=== PATIENT | male | born 1970 | race Caucasian/White ===

== ENCOUNTER 2018-02-13 22:07 | Inpatient (IN) | payer MEDICAID ==
[~2018-02-13] VITALS: Ht 172.7 cm; Wt 120.2 kg
[2018-02-13 22:25] VITALS: BP 150/97
--- NOTE | 2018-02-13 22:30 | NUR ---
PT AMBULATED TO BED 8. PT IS STABLE, AMBULATORY, A&OX4. HR IS TACHY AT 106.
--- NOTE | 2018-02-13 22:35 | NUR ---
pt presented er with c/o pain to the chest x 1 day. pt stated that within the last hour his fingers and hand became numb. pt is a/o x 4. nka. previous mecial hx is htn and dm. DENIES N/V; SKIN IS PINK/WARM/DRY; AAOX4 WITH EVEN AND STEADY GAIT; pt denies sob. LUNGS CLEAR BL; HR is sinus tachycardia; PATIENT STATES PAIN OF 6/10 AT THIS TIME; VSS; PATIENT POSITIONED FOR COMFORT; HOB ELEVATED; BEDRAILS UP X2; BED DOWN. ER MD MADE AWARE OF PT STATUS.
[2018-02-13] MEDS ORDERED: NACL 0.9% 1,000 ML IV ONE (22:45)
--- NOTE | 2018-02-13 22:55 | NUR ---
Dr. Heaton evaluating patient at bedside.
[2018-02-13] MEDS ORDERED: LORazepam 2 MG/ML VIAL IVP ONE (23:05)
[2018-02-13] MEDS ORDERED: NITROGLYCERIN 2% 1 GM PKT TP ONE (23:05)
[2018-02-13] MEDS ORDERED: ASPIRIN 81 MG TAB.CHEW PO ONE (23:05)
[2018-02-13] MEDS ORDERED: METOPROLOL 25 MG TAB PO ONE (23:05)
[2018-02-13] MEDS ORDERED: KETOROLAC 15 MG/ML VIAL IVP ONE (23:05)
[2018-02-13 23:33] LABS: BASOPHILS # (AUTO) 0.1 K/uL (0.00-0.22); BASOPHILS % (AUTO) 1.1 % (0.0-2.0); EOSINOPHILS # (AUTO) 0.1 K/uL (0-0.4); EOSINOPHILS % (AUTO) 2.3 % (0.0-4.0); HEMATOCRIT 42.8 % (36-52); HEMOGLOBIN 14.8 g/dL (12.0-18.0); LYMPHOCYTES # (AUTO) 1.3 K/uL (2.0-11.5); LYMPHOCYTES % (AUTO) 26.2 % (20.5-51.1); MEAN CORPUSCULAR HEMOGLOBIN 32 pg (27-31); MEAN CORPUSCULAR HGB CONC 35 g/dL (33-37); MEAN CORPUSCULAR VOLUME 92.3 fL (80-94); MONOCYTES # (AUTO) 0.4 K/uL (0.8-1.0); MONOCYTES % (AUTO) 7.4 % (1.7-9.3); NEUTROPHILS # (AUTO) 3.2 K/uL (1.8-7.7); PLATELET COUNT (AUTO) 161 K/uL (140-450); RED BLOOD CELL COUNT(AUTO) 4.64 MIL/uL (4.20-6.10); RED CELL DISTRIBUTION WIDTH 13.3 % (11.6-13.7)
--- NOTE | 2018-02-13 23:35 | NUR ---
PT SITTING UP IN BED, AT BEDSIDE. VITALS STABLE
[2018-02-13 23:45] LABS: ANION GAP 15.9 (8-16); CARBON DIOXIDE 26.2 mmol/L (21-32); CREATININE 0.8 mg/dL (0.7-1.3); POTASSIUM 4.1 mmol/L (3.5-5.1)
[2018-02-13 23:51] LABS: TOTAL BILIRUBIN 1.8 mg/dL (0.0-1.0)
[2018-02-13 23:55] LABS: PROTHROMBIN TIME 11.4 secs (10.8-13.4)
[2018-02-14] MEDS: NACL 0.9% 1,000 ML IV SCH (00:29)
[2018-02-14] MEDS ORDERED: ONDANSETRON 4 MG/2 ML VIAL IVP PRN (00:30)
[2018-02-14] MEDS ORDERED: ACETAMINOPHEN 325 MG TAB PO PRN (00:30)
--- NOTE | 2018-02-14 00:35 | NUR ---
pt resting in bed. vitals stable, at bedside. comfort measures offered. pt tolerated well.
[2018-02-14 01:36] LABS: APPEARANCE,URINE CLOUDY (CLEAR); BILIRUBIN,URINE 2+ (NEGATIVE); BLOOD, URINE NEGATIVE (NEGATIVE); COLOR,URINE ORANGE (YELLOW); LEUKOCYTE ESTERASE ,URINE NEGATIVE (NEGATIVE); NITRITE, URINE NEGATIVE (NEGATIVE); PH,URINE 5.5 (5.0-9.0); UGLUCOSE 2+ (NEGATIVE)
--- NOTE | 2018-02-14 01:45 | NUR ---
PT SITTING UP IN BED, VITALS STABLE, AT BEDSIDE. PT STATED PAIN IS DOWN TO A LEVEL 3/10. MD NOTIFIED.
[2018-02-14 01:48] LABS: RBC,URINE 0-5 (RARE) /HPF (0-5); WBC,URINE 0-5 (RARE) /HPF (0-5)
[2018-02-14 01:49] LABS: HYALINE CASTS, URINE 0-10 /LPF (None Seen); URINE AMORPHOUS URATE 2+ /HPF (None Seen)
[2018-02-14 01:50] LABS: FREE T4 (FREE THYROXINE) 1.38 ng/dL (0.76-1.46); MAGNESIUM 1.6 mg/dL (1.8-2.4); PHOSPHORUS 3.7 mg/dL (2.5-4.9); THYROID STIMULATING HORMONE 3.92 uIU/mL (0.34-3.74)
[2018-02-14 01:55] VITALS: BP 126/79
--- NOTE | 2018-02-14 01:55 | NUR ---
RECEIVED REPORT FROM ER NURSE AT BEDSIDE FOR CONTINUITY OF CARE. PT AAOX4. PT IV NOTED LAC 22G SALINE LOCK. PT AMBULATORY. PT HAS NITRO BID FROM ER PLACED 02/13 @ 2330 (GOOD FOR 12HRS). PT HAS NO SOB NO S/S OF DISTRESS ON RA. BED LOWERED CALL LIGHT WITHIN REACH WILL CONTINUE TO MONITOR.
--- NOTE | 2018-02-14 02:01 | NUR ---
Pt report given to BAKARI PATELDIRECTOR OF RESPIRATORY THERAPY. Transfer of care at this time. PT VITALS STABLE.
[2018-02-14 02:02] LABS: BARBITURATE, URINE NEG. ng/ml (NEG <=200); BENZODIAZEPINE, URINE NEG. ng/mL (NEG <=200); CANNABINOID, URINE POS. ng/mL (NEG <=50); COCAINE, URINE NEG. ng/mL (NEG <=300); OPIATE, URINE NEG. ng/mL (NEG <=2000); PHENCYCLIDINE SCREEN,URINE NEG. ng/mL (NEG <=25)
--- NOTE | 2018-02-14 02:05 | NUR ---
Patient will be admitted to care of DR. FIELDS. Admited to TELEMETRY. Will go to room 120A. Belongings list completed. Report to BAKARI PATEL.PT VITALS STABLE.
[2018-02-14] MEDS: ZOLPIDEM 5 MG TAB PO PRN ×2 (02:39→20:49)
--- NOTE | 2018-02-14 03:00 | NUR ---
PT SLEEPING NO SOB NO S/S OF DISTRESS ON RA. WILL CONTINUE TO MONITOR.
[2018-02-14 04:00] VITALS: BP 117/70
[2018-02-14] MEDS ORDERED: NITROGLYCERIN 0.4 MG TAB SL PRN (04:15)
[2018-02-14] MEDS ORDERED: DEXTROSE 50% 50 ML SYR IVP PRN (04:15)
[2018-02-14] MEDS ORDERED: MAG SULF 2000 MG/WATER PREMIX 50 ML IV SCH (05:00)
--- NOTE | 2018-02-14 05:00 | NUR ---
ADMIN MG FOR LOW MG LEVEL. WILL CONTINUE TO MONITOR.
[2018-02-14] MEDS: BLOOD GLUCOSE MONITORING 1 DEV DEV FS SCH ×4 (05:16→20:16)
[2018-02-14] MEDS: INSULIN LISPRO SLIDING SCALE 100 UNITS/ML VIAL SUBQ PRN ×4 (05:20→20:18)
--- NOTE | 2018-02-14 05:20 | NUR ---
BLOOD GLUCOSE 437 CRITICAL HIGH MD HOOKS VERBAL ORDER GIVE 12 UNITS REGULAR INSULIN. ALSO STATED THAT HE WILL ADD MORE MEDS TO DECREASE BLOOD GLUCOSE. WILL CONTINUE TO MONITOR.
[2018-02-14] MEDS: glipiZIDE 5 MG TAB PO SCH (06:24)
--- NOTE | 2018-02-14 07:25 | NUR ---
ENDORSED REPORT TO DAYSHIFT NURSE AT BEDSIDE FOR CONTINUITY OF CARE.
--- NOTE | 2018-02-14 07:32 | NUR ---
RECEIVED PT FROM COMPLAINT ADJUSTER NURSE, PT IS AWAKE AND LYING ON THE BED, WITH AN IV LINE IN PLACE ON THE LEFT AC G.22 NS AT 10ML/HR, INTACT. SIDE RAILS ARE UP AND CALL LIGHT WITHIN REACH. PLAN OF CARE WAS DISCUSSED AND PT VERBALIZED UNDERSTANDING. PT DENIES PAIN AT THIS TIME. NO SIGN OF DISTRESS NOTED AND WILL CONTINUE TO MONITOR.
[2018-02-14 07:53] LABS: ANION GAP 14.1 (8-16); CARBON DIOXIDE 25.5 mmol/L (21-32); CREATININE 0.8 mg/dL (0.7-1.3); POTASSIUM 3.6 mmol/L (3.5-5.1)
[2018-02-14 07:54] LABS: PHOSPHORUS 3.3 mg/dL (2.5-4.9)
[2018-02-14 08:00] VITALS: BP 140/80
[2018-02-14] MEDS: metFORMIN 500 MG TAB PO SCH ×2 (08:00→16:17)
[2018-02-14] MEDS: DOCUSATE SODIUM 100 MG GELCAP PO SCH ×2 (08:49→20:19)
[2018-02-14] MEDS: METOPROLOL 25 MG TAB PO SCH ×2 (08:50→20:17)
[2018-02-14] MEDS: ESCITALOPRAM 20 MG TAB PO SCH (08:51)
[2018-02-14] MEDS: LISINOPRIL 20 MG TAB PO SCH (08:51)
[2018-02-14] MEDS: ASPIRIN 81 MG TAB.CHEW PO SCH (08:51)
[2018-02-14] MEDS ORDERED: LISINOPRIL 5 MG TAB PO SCH (09:00)
[2018-02-14] MEDS ORDERED: METOPROLOL 25 MG TAB PO SCH (09:00)
[2018-02-14] MEDS: INSULIN LANTUS 100 UNITS/ML 10 ML VIAL SUBQ SCH (09:12)
--- NOTE | 2018-02-14 09:47 | NUR ---
PATIENT HAS BEEN SCREENED AND CATEGORIZED HIGH NUTRITION RISK. PATIENT WILL BE SEEN WITHIN 1-2 DAYS OF ADMISSION. 02/14/18 02/15/[address]
[2018-02-14 12:00] VITALS: BP 128/85
--- NOTE | 2018-02-14 15:48 | NUR ---
02/14/18 RD INITIAL ASSESSMENT COMPLETED PLEASE REFER TO NUTRITION ASSESSMENT UNDER CARE ACTIVITY FOR ESTIMATED NUTRITIONAL NEEDS. 1. CONTINUE CCHO 60 GM DIET TOLERATED 2. RECOMMEND GLUCERNA QD 3. PROVIDED NUTRITION EDUCATION ON DIABETES 4. RD TO FOLLOW-UP 3-5 DAYS, MODERATE RISK LLUVIA MCQUEEN RD
[2018-02-14 16:00] VITALS: BP 138/88
[2018-02-14] MEDS: HYDROcodone/APAP 7.5/325 MG 1 TAB PO PRN ×2 (16:27→20:49)
--- NOTE | 2018-02-14 19:20 | NUR ---
RECEIVED REPORT FROM DAY SHIFT NURSE AT PT BEDSIDE. PT IN STABLE CONDITION. FAMILY IS AT BEDSIDE. PT IS A/O X4 PT IS ON RA. SKIN IS INTACT. IV ACCESS IN L AC 22G. IV IS PATENT AND INTACT. PT NOT C/O CHEST PAIN BUT DOES COMPLAIN OF HEADACHE. BED IS LOCKED, LOW POSITION WITH SIDE RAILS UP X2. BOARD UPDATED. CALL LIGHT IS WITHIN REACH. WILL CONTINUE TO MONITOR PT.
--- NOTE | 2018-02-14 19:20 | NUR ---
ENDORSED PT TO HOTEL MAINTENANCE WORKER NURSE, SAMANTHA, FOR CONTINUITY OF CARE. PT IS STABLE AT THIS TIME WITH ON THE BEDSIDE
[2018-02-14 20:00] VITALS: BP 132/87
--- NOTE | 2018-02-14 20:18 | NUR ---
BS CHECKED, 180. INSULIN COVERAGE GIVEN PER MD ORDERS. PT TOLERATED WELL. WILL CONTINUE TO MONITOR.
--- NOTE | 2018-02-14 20:49 | NUR ---
PT C/O HEADACHE AND INABILITY TO SLEEP. LESLIEIEN AND MISTY GIVEN. WILL CONTINUE TO MONITOR PT.
[2018-02-14] MEDS ORDERED: ATORVASTATIN 20 MG TAB PO SCH (21:00)
[2018-02-14] MEDS ORDERED: KETOROLAC 30 MG/ML VIAL IM PRN (23:20)
--- NOTE | 2018-02-14 23:54 | NUR ---
PT C/O HEADACHE. TORADOL GIVEN. WILL CONTINUE TO MONITOR PT.
[2018-02-15] VITALS: BP 117/94
--- NOTE | 2018-02-15 00:02 | NUR ---
VS WITHIN NORMAL LIMITS. ALL PT NEEDS ARE MET AT THIS TIME. WILL CONTINUE TO MONITOR.
[2018-02-15] MEDS: NACL 0.9% 1,000 ML IV SCH (00:29)
--- NOTE | 2018-02-15 00:50 | NUR ---
PT ASLEEP IN BED. NO S/SX OF DISTRESS. WILL CONTINUE TO MONITOR PT.
--- NOTE | 2018-02-15 02:36 | NUR ---
NO CHANGE IN CONDITION. PT ASLEEP. NO S/SX OF DISTRESS. WILL CONTINUE TO MONITOR PT.
[2018-02-15 04:00] VITALS: BP 125/83
[2018-02-15] MEDS: BLOOD GLUCOSE MONITORING 1 DEV DEV FS SCH ×2 (05:35→11:30)
[2018-02-15] MEDS: glipiZIDE 5 MG TAB PO SCH (05:38)
[2018-02-15] MEDS: INSULIN LISPRO SLIDING SCALE 100 UNITS/ML VIAL SUBQ PRN ×2 (05:40→12:41)
--- NOTE | 2018-02-15 05:40 | NUR ---
BS CHECKED, 203. INSULIN COVERAGE GIVEN PER MD ORDERS. PT TOLERATED WELL. WILL CONTINUE TO MONITOR.
--- NOTE | 2018-02-15 07:10 | NUR ---
RECEIVED REPORT FROM NIGHTSHIFT NURSE AT BEDSIDE. PATIENT IS SLEEPING BUT AROUSABLE TO NAME. NO DISTRESS NOTED AT THIS TIME. NO PAIN NOTED. PATIENT HAS AN IV NOTED ON HIS LEFT AC 22G SL. PATIENT IS ALERT AND ORIENTED X4. CALL LIGHT WITHIN REACH OF PATIENT. INSTRUCTED PATIENT TO CALL IF HE NEEDS HELP WITH ANYTHING. UPDATED BOARD IN PATIENT'S ROOM. ALL PATIENT'S NEEDS MET AT THIS TIME. WILL CONTINUE TO MONITOR PATIENT.
--- NOTE | 2018-02-15 07:10 | NUR ---
ENDORSED PT TO DAY SHIFT NURSE FOR CONTINUITY OF CARE. PT IN STABLE CONDITION.
[2018-02-15 08:00] VITALS: BP 122/80
[2018-02-15 08:45] LABS: CHOL/HDL RATIO 7.3 (1-4.5)
[2018-02-15] MEDS: METOPROLOL 25 MG TAB PO SCH (09:40)
[2018-02-15] MEDS: LISINOPRIL 20 MG TAB PO SCH (09:41)
[2018-02-15] MEDS: DOCUSATE SODIUM 100 MG GELCAP PO SCH (09:42)
[2018-02-15] MEDS: ASPIRIN 81 MG TAB.CHEW PO SCH (09:43)
[2018-02-15] MEDS: ESCITALOPRAM 20 MG TAB PO SCH (09:44)
[2018-02-15] MEDS: HYDROcodone/APAP 7.5/325 MG 1 TAB PO PRN (09:45)
[2018-02-15] MEDS: metFORMIN 500 MG TAB PO SCH (09:47)
[2018-02-15] MEDS: INSULIN LANTUS 100 UNITS/ML 10 ML VIAL SUBQ SCH (09:48)
--- NOTE | 2018-02-15 09:48 | NUR ---
PATIENT TOOK ALL AM MEDICATIONS. PATIENT TOLERATED WELL. WILL CONTINUE TO MONITOR PATIENT.
[2018-02-15 12:00] VITALS: BP 111/66
--- NOTE | 2018-02-15 12:30 | NUR ---
PATIENT RESTING AT THIS TIME. NO DISTRESS NOTED.
[2018-02-15] MEDS ORDERED: METO25TA PO (14:34)
[2018-02-15] MEDS ORDERED: METF500T PO (14:34)
[2018-02-15] MEDS ORDERED: ZOLP5TAB1 PO (14:34)
[2018-02-15] MEDS ORDERED: LISI-420 PO (14:34)
[2018-02-15] MEDS ORDERED: GLIP5TAB13 PO (14:34)
--- NOTE | 2018-02-15 15:02 | NUR ---
PATIENT RESTING AT THIS TIME. NO DISTRESS NOTED. WILL CONTINUE TO MONITOR PATIENT.
--- NOTE | 2018-02-15 16:25 | NUR ---
PATIENT SIGNED DISCHARGE INSTRUCTIONS AND IS AWARE OF PRESCRIPTIONS. REMOVED IV FROM PATIENT WITH CATHETER STILL INTACT. REMOVED IDENTIFICATION BANDS FROM PATIENT. PATIENT GATHERED ALL BELONGINGS AND LEFT IN STABLE CONDITION.
== END 2018-02-15 16:25 | disposition home or self-care (01) | DRG 203 ==
LOC: MED 22:07 → MTU 02-14 00:38
PROVIDERS: ADMIT General Practice; ATTEND General Practice
DX: M94.0 Chondrocostal junction syndrome [Tietze] (principal); K76.89 Other specified diseases of liver; E11.319 Type 2 diabetes mellitus with unspecified diabetic retinopathy without macular edema; E11.65 Type 2 diabetes mellitus with hyperglycemia; E83.42 Hypomagnesemia; F41.9 Anxiety disorder, unspecified; E66.9 Obesity, unspecified; I10 Essential (primary) hypertension; E80.6 Other disorders of bilirubin metabolism; E03.9 Hypothyroidism, unspecified; G47.00 Insomnia, unspecified; I45.10 Unspecified right bundle-branch block; Z68.41 Body mass index [BMI] 40.0-44.9, adult; Z90.49 Acquired absence of other specified parts of digestive tract; Z83.3 Family history of diabetes mellitus; Z80.9 Family history of malignant neoplasm, unspecified; Z79.84 Long term (current) use of oral hypoglycemic drugs
CPT/HCPCS: 36415; 71045; 76705; 80048; 80053; 80305; 81001; 82150; 82948; 83036; 83690; 83735; 83880; 84100; 84439; 84443; 84484; 85025; 85610; 85730; 93005; 93925; 93970; 96361; 96374; 96375; 99285; J1815; J1885; J2060; J3475; Q0092

== ENCOUNTER 2019-01-06 01:52 | Emergency (ER) | payer SELFPAY ==
[~2019-01-06] VITALS: Ht 172.7 cm; Wt 99.8 kg
[~2019-01-06 01:52] MED LIST: GLIP5TAB13 PO; LISI-420 PO; METF500T PO; METO25TA PO; ZOLP5TAB1 PO
[2019-01-06 01:55] VITALS: BP 139/76
[2019-01-06] MEDS ORDERED: LIDOCAINE/PRILOCAINE 2.5% 5 GM TUBE TP ONE (03:00)
[2019-01-06] MEDS ORDERED: HYDROcodone/APAP 5/325 MG 1 TAB TAB PO ONE (03:00)
[2019-01-06 04:27] VITALS: BP 132/62
== END 2019-01-06 04:25 | disposition home or self-care (01) ==
LOC: MED 01:52
DX: K62.89 Other specified diseases of anus and rectum (principal); R17 Unspecified jaundice; I10 Essential (primary) hypertension; E11.9 Type 2 diabetes mellitus without complications; Z79.84 Long term (current) use of oral hypoglycemic drugs; Z79.899 Other long term (current) drug therapy
CPT/HCPCS: 99283

== ENCOUNTER 2019-05-12 12:11 | Inpatient (IN) | payer OTHER ==
[~2019-05-12] VITALS: Ht 172.7 cm; Wt 77.7 kg
--- NOTE | 2019-05-12 07:15 | NUR ---
ENDORSED TO NIGHTSHIFT NURSE AT BEDSIDE. PATIENT IS RESTING IN BED WITH THE TV OFF AND THE LIGHTS OFF. ABLE TO MAKE NEEDS KNOWN. NO COMPLAINTS OR CONCERNS AT THIS TIME. PATIENT PREFERRED TO WEAR OWN CLOTHES INSTEAD OF HOSPITAL GOWN. RESPIRATIONS EVEN AND UNLABORED WITH NO SOB OR RESPIRATORY DISTRESS. SAFETY MEASURES: HOB ELEVATED, BED IN LOWEST POSITION, CALL LIGHT WITHIN REACH, BED ALARM ACTIVATED. PATIENT IS STABLE
[2019-05-12 12:17] VITALS: BP 93/55
--- NOTE | 2019-05-12 12:20 | NUR ---
PT AMBULATED TO BED 5.
[2019-05-12] MEDS ORDERED: NACL 0.9% 1,000 ML IV SCH (12:31)
--- NOTE | 2019-05-12 12:49 | NUR ---
Dr. Heaton is evaluating the patient at bedside.
--- NOTE | 2019-05-12 12:50 | NUR ---
EKG AT BEDSIDE.
--- NOTE | 2019-05-12 12:50 | NUR ---
PT PRESENTS TO ED WITH C/O BODY WEAKNESS X 1 MONTH AND FEELING OF LIGHTHEADEDNESS. PT REPORTS N/V/D AND REPORTS EPISODE OF DIARRHEA EARLIER TODAY. PT STATES A DECREASE IN APPETITE AND STATES "FEDERICO LOST 30 LBS IN 1 WEEK". PT STATES THAT HE HAS BEEN DIAGNOSED WITH CIRRHOSIS. PT REPORTS LOWER BACK PAIN AND STATES THAT HE IS "SORE", PT RATES PAIN 5/10 AT THIS TIME. PT PRESENTS WITH A CLEAR SPEECH AND IS CONVERSING APPROPRIATELY. SKIN IS WARM, PINK, AND DRY. BP 89/46, ER MD GALAVIZ MADE AWARE. FAMILY MEMBER AT BEDSIDE. PT POSITIONED FOR COMFORT, HOB ELEVATED, BED RAIL UP X 1. ER MD AWARE OF PT STATUS. NKA HX: CIRRHOSIS, DM, HTN RX: LASIX, MILK THISTLE, FOLIC ACID, THIAMINE, AND ZOFRAN
--- NOTE | 2019-05-12 12:58 | NUR ---
PT STATES THAT HE IS UNABLE TO PROVIDE A URINE SAMPLE AT THIS TIME.
[2019-05-12 13:04] LABS: BASOPHILS % (AUTO) 0.1 % (0.0-2.0); EOSINOPHILS # (AUTO) 0.1 K/uL (0-0.4); EOSINOPHILS % (AUTO) 1.4 % (0.0-4.0); HEMOGLOBIN 9.6 g/dL (12.0-18.0); LYMPHOCYTES # (AUTO) 0.8 K/uL (2.0-11.5); LYMPHOCYTES % (AUTO) 15.8 % (20.5-51.1); MEAN CORPUSCULAR HEMOGLOBIN 37 pg (27-31); MEAN CORPUSCULAR HGB CONC 35 g/dL (33-37); MEAN CORPUSCULAR VOLUME 104.5 fL (80-94); MONOCYTES # (AUTO) 0.4 K/uL (0.8-1.0); MONOCYTES % (AUTO) 7.4 % (1.7-9.3); NEUTROPHILS # (AUTO) 3.8 K/uL (1.8-7.7); NEUTROPHILS % (AUTO) 75.3 % (42.2-75.2); PLATELET COUNT (AUTO) 170 K/uL (140-450); RED BLOOD CELL COUNT(AUTO) 2.59 MIL/uL (4.20-6.10); RED CELL DISTRIBUTION WIDTH 16.1 % (11.6-13.7)
[2019-05-12 13:27] LABS: ACETAMINOPHEN < 0.5 ug/ml (10-30); SALICYLATE < 2.8 mg/dL (2.8-20.0)
[2019-05-12 13:29] LABS: PROTHROMBIN TIME 17.8 secs (10.8-13.4)
[2019-05-12 13:32] LABS: ANION GAP 13.2 (8-16); CARBON DIOXIDE 31.4 mmol/L (21-32); CREATININE 0.8 mg/dL (0.7-1.3); POTASSIUM 4.6 mmol/L (3.5-5.1)
[2019-05-12 13:36] LABS: ALBUMIN 3.4 g/dL (3.4-5.0); TOTAL BILIRUBIN 11.7 mg/dL (0.0-1.0)
[2019-05-12 13:46] LABS: BARBITURATE, URINE NEG. ng/ml (NEG <=200); BENZODIAZEPINE, URINE NEG. ng/mL (NEG <=200); CANNABINOID, URINE POS. ng/mL (NEG <=50); COCAINE, URINE NEG. ng/mL (NEG <=300); OPIATE, URINE NEG. ng/mL (NEG <=2000); PHENCYCLIDINE SCREEN,URINE NEG. ng/mL (NEG <=25)
--- NOTE | 2019-05-12 13:46 | NUR ---
PT SLEEPING AT BEDSIDE, ABLE TO VISUALIZE RISE AND FALL OF CHEST. WILL CONTINUE TO MONITOR.
[2019-05-12] MEDS ORDERED: LACTULOSE 20 GM/30 ML UDC PO ONE (13:50)
[2019-05-12 13:58] LABS: APPEARANCE,URINE HAZY (CLEAR); BILIRUBIN,URINE 1+ (NEGATIVE); BLOOD, URINE NEGATIVE (NEGATIVE); COLOR,URINE YELLOW (YELLOW); LEUKOCYTE ESTERASE ,URINE NEGATIVE (NEGATIVE); NITRITE, URINE NEGATIVE (NEGATIVE); UGLUCOSE NEGATIVE (NEGATIVE)
[2019-05-12 14:09] LABS: RBC,URINE NONE SEEN /HPF (0-5); WBC,URINE 0-5 /HPF (0-5)
[2019-05-12 14:10] LABS: URINE AMORPHOUS URATE 1+ /HPF (None Seen)
[2019-05-12] MEDS ORDERED: FURO-572 PO (14:22)
[2019-05-12] MEDS ORDERED: ONDA4TAB PO (14:23)
[2019-05-12] MEDS ORDERED: VITB1I PO (14:24)
[2019-05-12] MEDS ORDERED: MILK140C2 PO (14:25)
[2019-05-12] MEDS ORDERED: VITA1TAB44 PO (14:25)
--- NOTE | 2019-05-12 14:35 | NUR ---
AT BEDSIDE WITH PT. PT RESTING, ABLE TO VISIT RISE AND FALL OF THE CHEST. WILL CONTINUE TO MONITOR.
--- NOTE | 2019-05-12 15:36 | NUR ---
Patient appears to be resting comfortably in bed. Respirations even and unlabored. at bedside. Will continue to monitor.
[2019-05-12] MEDS ORDERED: NACL 0.9% 1,000 ML IV STA (15:37)
--- NOTE | 2019-05-12 15:57 | NUR ---
Dr. Davis is evaluating the patient at bedside.
[2019-05-12] MEDS ORDERED: PROMETHAZINE 25 MG/ML VIAL IVP PRN (16:20)
[2019-05-12] MEDS ORDERED: LORazepam 1 MG TAB PO PRN (16:20)
[2019-05-12] MEDS ORDERED: ZOLPIDEM 5 MG TAB PO PRN (16:20)
[2019-05-12] MEDS ORDERED: LACTULOSE 20 GM/30 ML UDC PO PRN (16:20)
[2019-05-12] MEDS ORDERED: HYDROcodone/APAP 5/325 MG 1 TAB TAB PO PRN (16:25)
[2019-05-12] MEDS ORDERED: ACETAMINOPHEN 325 MG TAB PO PRN (16:25)
[2019-05-12 16:30] VITALS: BP 101/64
--- NOTE | 2019-05-12 16:30 | NUR ---
RECEIVED PATIENT FROM ED VIA GURNEY WITH FAMILY AT BEDSIDE. ASSISTED PATIENT TO BED WITH NO COMPLICATIONS. MRSA SWAB PERFORMED TO BOTH NARES. VITAL SIGNS WERE TAKEN. PATIENT IS STABLE. TAUGHT PATIENT ABOUT TV, CALL LIGHT, BED ALARM, AND VISITOR POLICY. PATIENT ORIENTED X4. PATIENT HAD NO SIGNS OF DISTRESS. RESPIRATIONS EVEN AND UNLABORED WITH NO SOB. SKIN WARM AND DRY TO TOUCH. IV IN LEFT AC 20G. IV SITE IS CLEAN, DRY, AND INTACT WITH NO DRAINAGE OR INFILTRATION. SAFETY MEASURES: HOB ELEVATED, BED IN LOWEST POSITION, CALL LIGHT WITHIN REACH, BED ALARM ACTIVATED, AND TELE MONITOR ATTACHED. WILL CONTINUE TO MONITOR.
--- NOTE | 2019-05-12 16:30 | NUR ---
Patient will be admitted to care of DR ROSADO. Admited to TELE. Will go to room 125B. Belongings list completed. Report to JORGE HUTTON.
--- NOTE | 2019-05-12 17:45 | NUR ---
PATIENT IN BED. FAMILY MEMBER ASSISTED PATIENT TO THE BATHROOM. NO COMPLICATIONS OR CONCERNS AT THIS MOMENT. RESPIRATIONS EVEN AND UNLABORED WITH NO SOB OR RESPIRATORY DISTRESS. SAFETY MEASURES: HOB ELEVATED, BED IN LOWEST POSITION, CALL LIGHT WITHIN REACH, BED ALARM ACTIVATED, AND TELE MONITOR ATTACHED. WILL CONTINUE TO MONITOR
--- NOTE | 2019-05-12 19:18 | NUR ---
RECEIVED BEDSIDE REPORT FROM DAY RN. PT IS AAOX4 ON RA. RESPIRATIONS ARE EQUAL AND UNLABORED. IV ON LAC 20G NS TKO. SKIN INTACT. PT WITH SKIN AND SCLERA JAUNDICE. PER RN PTS B/P BEEN RUNNING LOW AND RECEIVED 2L BOLUS IN ER. WILL MONITOR CLOSELY. POC DISCUSSED WITH PT. CALL LIGHT IS WITHIN REACH. PT REFUSED TO WEAR HOSPITAL GOWN. WILL ROUND FREQUENTLY.
[2019-05-12 20:00] VITALS: BP 100/46
--- NOTE | 2019-05-12 21:00 | NUR ---
VITAL SIGNS ARE WITHIN NORMAL LIMITS. 100/46 HR 59 DENIES ANY PAIN. POC DISCUSSED WITH PT. ALL QUESTIONS AND CONCERNS ANSWERED. CALL LIGHT IS WITHIN REACH. WILL CONTINUE TO MONITOR.
--- NOTE | 2019-05-12 22:00 | NUR ---
AND DAUGHTER ARE AT BEDSIDE. NO S/S OF DISTRESS. SAFETY MEASURES IN PLACE. WILL ROUND FREQUENTLY.
[2019-05-13] VITALS: BP 90/44
--- NOTE | 2019-05-13 | NUR ---
VITAL SIGNS STABLE 90/44 HR 58. DENIES ANY PAIN. PT SAT UP AND GAVE ICE CHIPS PER REQUEST. CALL LIGHT IS WITHIN REACH. WILL CONTINUE TO MONITOR.
--- NOTE | 2019-05-13 02:00 | NUR ---
PT IS SLEEPING COMFORTABLY IN BED. CHEST RISE AND FALL. CALL LIGHT IS WITHIN REACH.
[2019-05-13 04:00] VITALS: BP 98/50
--- NOTE | 2019-05-13 04:00 | NUR ---
VITAL SIGNS ARE WITHIN NORMAL LIMITS. ASSISTED PT TO BATHROOM. TOLERATED WELL. ALL NEEDS MET AT THIS TIME.
[2019-05-13 06:18] LABS: PROTHROMBIN TIME 18.3 secs (10.8-13.4)
--- NOTE | 2019-05-13 06:21 | NUR ---
ADMINISTERED PRN LACTULOSE FOR HIGH AMMONIA. PT TOLERATED WELL.
[2019-05-13 06:30] LABS: BASOPHILS % (AUTO) 0.2 % (0.0-2.0); EOSINOPHILS # (AUTO) 0.1 K/uL (0-0.4); EOSINOPHILS % (AUTO) 2.1 % (0.0-4.0); HEMATOCRIT 23.6 % (36-52); HEMOGLOBIN 8.5 g/dL (12.0-18.0); LYMPHOCYTES # (AUTO) 1.4 K/uL (2.0-11.5); LYMPHOCYTES % (AUTO) 27.3 % (20.5-51.1); MEAN CORPUSCULAR HEMOGLOBIN 38 pg (27-31); MEAN CORPUSCULAR HGB CONC 36 g/dL (33-37); MEAN CORPUSCULAR VOLUME 104.8 fL (80-94); MONOCYTES # (AUTO) 0.4 K/uL (0.8-1.0); MONOCYTES % (AUTO) 6.8 % (1.7-9.3); NEUTROPHILS # (AUTO) 3.3 K/uL (1.8-7.7); NEUTROPHILS % (AUTO) 63.6 % (42.2-75.2); PLATELET COUNT (AUTO) 142 K/uL (140-450); RED BLOOD CELL COUNT(AUTO) 2.26 MIL/uL (4.20-6.10); RED CELL DISTRIBUTION WIDTH 16.1 % (11.6-13.7); WHITE BLOOD COUNT (AUTO) 5.2 K/uL (4.8-10.8)
--- NOTE | 2019-05-13 07:31 | NUR ---
GAVE BEDSIDE REPORT TO DAY SHIFT RN. PT ENDORSED IN STABLE CONDITION.
[2019-05-13 07:35] LABS: MAGNESIUM 1.8 mg/dL (1.8-2.4)
--- NOTE | 2019-05-13 07:36 | NUR ---
RECEIVED BEDSIDE REPORT FROM NIGHTSHIFT NURSE. PATIENT LAYING IN BED ASLEEP UPON ARRIVAL. RESPONSIVE TO VERBAL AND TACTILE STIMULI. ABLE TO MAKE NEEDS KNOWN. NO COMPLAINTS OR CONCERNS AT THIS TIME. SKIN WARM AND DRY TO TOUCH. IV RIGHT AC 20G. SITE INTACT, CLEAN, AND DRY RUNNING NS AT 120ML/HR. RESPIRATIONS EVEN AND UNLABORED WITH NO SOB OR RESPIRATORY DISTRESS. SAFETY MEASURES: HOB ELEVATED, NON SKID SOCKS ON, BED IN LOWEST POSITION, CALL LIGHT WITHIN REACH, BED ALARM ACTIVATED, AND TELE MONITORS ATTACHED. WILL CONTINUE TO MONITOR
[2019-05-13 08:00] VITALS: BP 92/52
--- NOTE | 2019-05-13 08:20 | NUR ---
PATIENT HAS BEEN SCREENED AND CATEGORIZED HIGH NUTRITION RISK. PATIENT WILL BE SEEN WITHIN 1-2 DAYS OF ADMISSION. 05/13/19-05/14/[address]
--- NOTE | 2019-05-13 09:10 | NUR ---
ADMINISTERED MEDICATIONS PRESCRIBED PER MD. MEDICATION EDUCATION PERFORMED. PATIENT ABLE TO VERBALIZE UNDERSTANDING AND TEACH BACK. ABLE TO MAKE NEEDS KNOWN. NO COMPLAINTS OR CONCERNS AT THIS TIME. RESPIRATIONS EVEN AND UNLABORED. SAFETY MEASURES: HOB ELEVATED, NON SKID SOCKS ON, BED IN LOWEST POSITION, CALL LIGHT WITHIN REACH, BED ALARM ACTIVATED, AND TELE MONITORS ATTACHED. WILL CONTINUE TO MONITOR
[2019-05-13 09:55] LABS: ANION GAP 13.3 (8-16); CARBON DIOXIDE 29.7 mmol/L (21-32)
[2019-05-13 09:56] LABS: ALBUMIN 2.8 g/dL (3.4-5.0); CREATININE 0.7 mg/dL (0.7-1.3); TOTAL BILIRUBIN 10.6 mg/dL (0.0-1.0)
--- NOTE | 2019-05-13 10:15 | NUR ---
PATIENT WAS LYING IN BED UPON ARRIVAL. PHYSICAL THERAPY CAME TO VISIT PATIENT. PT TOLERATED FAIRLY. NO CONCERNS AT THIS TIME. NO COMPLAINTS OF PAIN. RESPIRATIONS EVEN AND UNLABORED WITH NO SOB OR RESPIRATORY DISTRESS. SAFETY MEASURES: HOB ELEVATED, NON SKID SOCKS ON, BED IN LOWEST POSITION, CALL LIGHT WITHIN REACH, BED ALARM ACTIVATED, AND TELE MONITORS ATTACHED. WILL CONTINUE TO MONITOR WILL CONTINUE TO MONITOR Addendum: 05/13/19 at 1052 by Yanira Crabtree RN DISREGARD PHYSICAL THERAPY COMING TO VISIT PATIENT. PHYSICAL THERAPY DID NOT VISIT PATIENT IN 125B
--- NOTE | 2019-05-13 10:50 | NUR ---
DC PLANNIN48 YEAR OLD MALE FROM HOME, ADMITTED DUE TO GENERALIZED WEAKNESS AND NEAR SYNCOPAL EPISODES. PAST MEDICAL HISTORY INCLUDE ALCOHOLIC LIVER CIRRHOSIS. INITIAL DIAGNOSIS OF HEPATIC ENCEPHALOPATHY. ON LACTULOSE PO. NO CONSULTS AT THIS TIME. ON ROOM AIR. CXR NORMAL. CM WILL FOLLOW UP.
[2019-05-13 12:00] VITALS: BP 90/45
--- NOTE | 2019-05-13 13:01 | NUR ---
OFFERED PT PRN LACTULOSE. PT WANTS TO WAIT TILL HIS STOMACH SETTLES, DUE TO EATING YOGURT AND GRANOLA.
--- NOTE | 2019-05-13 13:35 | NUR ---
05/13/19 RD INITIAL ASSESSMENT COMPLETED PLEASE REFER TO NUTRITION ASSESSMENT UNDER CARE ACTIVITY FOR ESTIMATED NUTRITIONAL NEEDS. 1. RECOMMEND HEPATIC, VEGETARIAN DIET TOLERATED 2. RECOMMEND ENUSRE TID 3. NUTRITION EDUCATION ON CIRRHOSIS AND INCREASING PO INTAKE WAS GIVEN 4. RD TO FOLLOW-UP 2-3 DAYS, HIGH RISK LLUVIA MCQUEEN, ZACHARY
--- NOTE | 2019-05-13 14:55 | NUR ---
PATIENT IS AWARE AND PREPARED FOR DISCHARGE. RESPIRATIONS EVEN AND UNLABORED. NO SOB OR RESPIRATORY DISTRESS. SKIN WARM AND DRY AND INTACT. EDUCATED PATIENT ON DISCHARGE INSTRUCTIONS AND MEDICATION REGIMEN. PATIENT IS ABLE TO VERBALIZE UNDERSTANDING AND TEACH BACK. DAUGHTER IS WITH PATIENT AT BEDSIDE. PATIENT HAD ID BANDS AND INTACT IV CANNULA REMOVED LUMEN INTACT. TELE MONITOR WAS REMOVED FROM PATIENT. NO COMPLICATIONS NOTED. PATIENT WAS WHEELED OUT BY THE NURSE TO THE FRONT LOBBY WHERE THE DAUGHTER HAD THE CAR READY TO PICK HIM UP. PATIENT IS STABLE.
--- NOTE | 2019-05-13 15:20 | NUR ---
CONTACTED PATIENT'S PCP [facility] DR. JOSE ROBERTO PELLETIER'S OFFICE AT [phone], ABLE TO SPEAK TO STEPHANE REGARDING POST DC APPOINTMENT. SHE PROVIDED ME WITH MAY 21, 2019 AT 1330PM. [place] [id number] [address] [place] [address]. WILL PROVIDE A COPY TO THE PATIENT. Addendum: 05/14/19 at 1033 by Dewayne Alvarez SS CLAUDE contacted patient to inform patient of PCP appointment. CLAUDE left voicemail to [phone]. CLAUDE will follow up as needed.
== END 2019-05-13 14:55 | disposition home or self-care (01) | DRG 279 ==
LOC: MED 12:11 → MMU 15:37
PROVIDERS: ADMIT Internal Medicine Pulmonary Disease; ATTEND Internal Medicine Pulmonary Disease
DX: K72.90 Hepatic failure, unspecified without coma (principal); D68.4 Acquired coagulation factor deficiency; K70.30 Alcoholic cirrhosis of liver without ascites; D64.9 Anemia, unspecified; E80.6 Other disorders of bilirubin metabolism; Z79.899 Other long term (current) drug therapy
CPT/HCPCS: 36415; 71045; 80053; 80305; 81001; 82140; 82150; 83605; 83690; 83735; 83880; 84484; 85025; 85610; 85730; 87040; 87081; 87086; 93005; 96360; 96361; 99285; G0480; G0482; Q0092

== ENCOUNTER 2019-06-16 17:48 | Inpatient (IN) | payer OTHER ==
[~2019-06-16] VITALS: Ht 172.7 cm; Wt 76.7 kg
--- NOTE | 2019-06-16 11:37 | NUR ---
RECEIVED PT FROM JESSE OSHEA VIA [facility]. PT ON DOPAMINE DRIP AT 5MCG. BILAT PUPPILS 4MM, PERRL, BRISK RETURN. NOTED YELLOW COLOR ON SCLERA OF BILAT EYES. PT HAS PERIPHERAL IV RIGHT AC 20 GAUGE, AND LEFT AC 22 GAUGE, INTACT, PATENT, GOOD BLOOD RETURN. SINUS RHYTHM ON MONITOR. LUNG SOUNDS CLEAR. RESPIRATIONS EVEN AND UNLABORED. ABDOMEN IS SOFT AND ROUND. BOWEL SOUNDS ACTIVE. SKIN IS INTACT, WARM AND DRY. CAP REFILL LESS THAN 2 SECONDS. GENERALIZED WEAKNESS. PT C/O OF CONTINUOS ABDOMINAL PAIN IN THE LIVER AREA AND CONTINUOS LOWER BACK PAIN. PT ABLE TO USE URINAL, DARK OBIE COLOR. HOB 30 DEGREES. BED LOCKED IN LOWEST POSITION. WILL CONTINUE TO MONITOR.
[2019-06-16 11:45] VITALS: BP 126/66
[~2019-06-16 17:48] MED LIST changes: +FURO-572 PO; -GLIP5TAB13 PO; -LISI-420 PO; -METF500T PO; -METO25TA PO; +ONDA4TAB PO; +VITA1TAB44 PO; +VITB1I PO; -ZOLP5TAB1 PO
--- NOTE | 2019-06-16 17:48 | NUR ---
PT LOCO BLS TO ER BED 08
[2019-06-16 18:02] VITALS: BP 93/36
[2019-06-16] MEDS ORDERED: ONDANSETRON 4 MG/2 ML VIAL IVP ONE ×2 (18:10→23:00)
[2019-06-16] MEDS ORDERED: FAMOTIDINE 20 MG/2 ML VIAL IVP ONE (18:10)
[2019-06-16] MEDS ORDERED: ALBUMIN HUMAN 5 % 250 ML IV ONE (18:10)
--- NOTE | 2019-06-16 18:10 | NUR ---
49/M with liver cirrhosis c/o generalized weakness x 2 hours CLAIMS CLERK. Per EMS, patient was hypotensive in route SPB 90s. Pt appears weak. Eyes jaundiced. Bedrails up x1, at bedside, on bedside monitor. Will continue to monitor. HX- cirrhosis, hypotension
--- NOTE | 2019-06-16 18:12 | NUR ---
DR CUETO EVALUATING PT AT BEDSIDE
--- NOTE | 2019-06-16 18:13 | NUR ---
BP 93/36, MAP 53; DR CUETO AT BEDSIDE AND AWARE.
[2019-06-16] MEDS ORDERED: LACTULOSE 20 GM/30 ML UDC PO ONE (18:25)
--- NOTE | 2019-06-16 18:30 | NUR ---
PT W/C ASISSTED TO BATHROOM. ABLE TO STAND UP AND TRANSFER FROM [facility] TO W/C.
--- NOTE | 2019-06-16 19:04 | NUR ---
report to Janelle Ying, transfer of care at this time.
--- NOTE | 2019-06-16 19:05 | NUR ---
RECIVED REPORT FROM KIERSTEN PATEL.
--- NOTE | 2019-06-16 19:07 | NUR ---
PT RESTING IN BED LAYING DOWN. FAMILY AT BEDSIDE. PT AX0X4. RESPIRATIONS ARE EVEN AND UNLABORED. O2SAT % 100% ON RA. PT DENIES C/O PAIN 0/10 AT THIS TIME. SKIN IS WARM AND DRY TO TOUCH. JAUNDICE NOTED IN SKIN AND SCLERA. ABLUMIN IV RUNNING CONTINOUSLY. IV IN L AC 22G. IV SITE IS PATENT, NO REDNESS OR SWELLING NOTED AT SITE. PT BED IN LOWEST POSITION AND LOCKED IN PLACE. WILL CONTIUE TO MONITOR.
--- NOTE | 2019-06-16 19:10 | NUR ---
LAB AT BEDSIDE.
--- NOTE | 2019-06-16 19:15 | NUR ---
XRAY AT BEDSIDE.
[2019-06-16 19:36] LABS: BASOPHILS % (AUTO) 0.2 % (0.0-2.0); EOSINOPHILS # (AUTO) 0.1 K/uL (0-0.4); EOSINOPHILS % (AUTO) 1.2 % (0.0-4.0); HEMATOCRIT 23.9 % (36-52); HEMOGLOBIN 8.3 g/dL (12.0-18.0); LYMPHOCYTES # (AUTO) 0.9 K/uL (2.0-11.5); LYMPHOCYTES % (AUTO) 16.2 % (20.5-51.1); MEAN CORPUSCULAR HEMOGLOBIN 38 pg (27-31); MEAN CORPUSCULAR HGB CONC 35 g/dL (33-37); MEAN CORPUSCULAR VOLUME 110.9 fL (80-94); MONOCYTES # (AUTO) 0.7 K/uL (0.8-1.0); MONOCYTES % (AUTO) 11.8 % (1.7-9.3); NEUTROPHILS # (AUTO) 3.9 K/uL (1.8-7.7); NEUTROPHILS % (AUTO) 70.6 % (42.2-75.2); PLATELET COUNT (AUTO) 114 K/uL (140-450); RED BLOOD CELL COUNT(AUTO) 2.16 MIL/uL (4.20-6.10); RED CELL DISTRIBUTION WIDTH 16.1 % (11.6-13.7); WHITE BLOOD COUNT (AUTO) 5.5 K/uL (4.8-10.8)
--- NOTE | 2019-06-16 19:36 | NUR ---
PT TAKEN TO CT IN W/C, IV ALBUMIN STILL RUNNING.
--- NOTE | 2019-06-16 19:56 | NUR ---
PT RETURN FROM RAD
[2019-06-16 20:00] LABS: PROTHROMBIN TIME 18.2 secs (10.8-13.4)
[2019-06-16 20:06] LABS: ACETONE, SERUM NEGATIVE (NEGATIVE)
[2019-06-16 20:13] LABS: ANION GAP 9.7 (8-16); CARBON DIOXIDE 31.6 mmol/L (21-32); CREATININE 0.7 mg/dL (0.7-1.3); POTASSIUM 5.3 mmol/L (3.5-5.1)
--- NOTE | 2019-06-16 20:13 | NUR ---
Dr. Heaton examining patient.
[2019-06-16 20:20] LABS: ALBUMIN 2.8 g/dL (3.4-5.0); TOTAL BILIRUBIN 9.4 mg/dL (0.0-1.0)
[2019-06-16 20:28] LABS: BARBITURATE, URINE NEG. ng/ml (NEG <=200); BENZODIAZEPINE, URINE NEG. ng/mL (NEG <=200); CANNABINOID, URINE POS. ng/mL (NEG <=50); COCAINE, URINE NEG. ng/mL (NEG <=300); OPIATE, URINE NEG. ng/mL (NEG <=2000); PHENCYCLIDINE SCREEN,URINE NEG. ng/mL (NEG <=25)
[2019-06-16 20:33] LABS: APPEARANCE,URINE CLEAR (CLEAR); BILIRUBIN,URINE 2+ (NEGATIVE); BLOOD, URINE NEGATIVE (NEGATIVE); COLOR,URINE ORANGE (YELLOW); LEUKOCYTE ESTERASE ,URINE NEGATIVE (NEGATIVE); NITRITE, URINE NEGATIVE (NEGATIVE); UGLUCOSE NEGATIVE (NEGATIVE)
[2019-06-16] MEDS ORDERED: DOPamine 400 MG/D5W PREMIX 250 ML IV ONE (20:35)
--- NOTE | 2019-06-16 20:55 | NUR ---
PT RESTING IN BED B/P 85/36. NOTIFIED AND ORDERED DOPAMINE 400ML/D5W PREMIX 250ML. NEW IV LINE PLACED ON RAC 20G, AND IS PATENT. TIRATION DRIP STARTED AT 5ML/HR. VS: BP-85/36, HR-62, OSAT-100%, RR-19. PT HAD X 1 EPIDOSE OF N/V. VOMIT IS CLEAR IN COLOR. PT DENIES WANTING ANY N/V MEDICATION.
[2019-06-16] MEDS ORDERED: MORPHINE SULFATE 2 MG/ML SYR IVP ONE (21:10)
--- NOTE | 2019-06-16 21:10 | NUR ---
VS: BP-128/61, HR-67, OSAT-100%, RR-19. PT RESTING IN BED EYES CLOSED, RESPIRATIONS ARE EVEN AND UNABORED. SKIN IS WARM AND DRY TO TOUCH. DOPMANIE IV RUNNING AT 5ML/HR. IV SITE IS PATENT, NO REDNESS OR SWELLING NOTED. WILL CONTINUE TO MOINTOR.
--- NOTE | 2019-06-16 21:25 | NUR ---
VS: BP-128/54, HR-64, OSAT-98%, RR-15. PT RESTING IN BED EYES CLOSED, RESPIRATIONS ARE EVEN AND UNABORED. SKIN IS WARM AND DRY TO TOUCH. DOPMANIE IV RUNNING AT 5ML/HR. IV SITE IS PATENT, NO REDNESS OR SWELLING NOTED. WILL CONTINUE TO MOINTOR.
--- NOTE | 2019-06-16 21:40 | NUR ---
VS: BP-116/48, HR-66, OSAT-98%, RR-18. PT RESTING IN BED EYES OPEN, RESPIRATIONS ARE EVEN AND UNABORED. SKIN IS WARM AND DRY TO TOUCH. PT HAS C/O 10/[address] GALAVIZ NOTIFIED AND ORDERED MORPHINE 1 MG IVP. MEDICATION GIVEN. DOPMANIE IV RUNNING AT 5ML/HR. IV SITE IS PATENT, NO REDNESS OR SWELLING NOTED. WILL CONTINUE TO [facility].
--- NOTE | 2019-06-16 21:55 | NUR ---
VS: BP-118/49, HR-67, OSAT-97%, RR-14. PT RESTING IN BED EYES OPEN, RESPIRATIONS ARE EVEN AND UNABORED. SKIN IS WARM AND DRY TO TOUCH. PT STATES HEAD PAIN HAS DECREASED FROM 10/10 TO 5/10. DOPMANIE IV RUNNING AT 5ML/HR. IV SITE IS PATENT, NO REDNESS OR SWELLING NOTED. WILL CONTINUE TO MOINTOR.
--- NOTE | 2019-06-16 22:10 | NUR ---
VS: BP-108/45, HR-70, OSAT-96%, RR-14. PT RESTING IN BED EYES CLOSED, RESPIRATIONS ARE EVEN AND UNABORED. SKIN IS WARM AND DRY TO TOUCH. DOPMANIE IV RUNNING AT 5ML/HR. IV SITE IS PATENT, NO REDNESS OR SWELLING NOTED. WILL CONTINUE TO MOINTOR.
--- NOTE | 2019-06-16 22:25 | NUR ---
VS: BP-121/52, HR-70, OSAT-96%, RR-17. PT RESTING IN BED EYES CLOSED, RESPIRATIONS ARE EVEN AND UNABORED. SKIN IS WARM AND DRY TO TOUCH. DOPMANIE IV RUNNING AT 5ML/HR. IV SITE IS PATENT, NO REDNESS OR SWELLING NOTED. WILL CONTINUE TO MOINTOR.
[2019-06-16 22:34] LABS: AMYLASE 200 U/L (25-115); GAMMA GLUTAMYL TRANSFERASE 17 U/L (7-51); LIPASE 399 U/L (73-393); MAGNESIUM 1.8 mg/dL (1.8-2.4)
--- NOTE | 2019-06-16 22:40 | NUR ---
VS: BP-106/46, HR-69, OSAT-96%, RR-14. PT RESTING IN BED EYES CLOSED, RESPIRATIONS ARE EVEN AND UNABORED. SKIN IS WARM AND DRY TO TOUCH. DOPMANIE IV RUNNING AT 5ML/HR. IV SITE IS PATENT, NO REDNESS OR SWELLING NOTED. WILL CONTINUE TO MOINTOR.
--- NOTE | 2019-06-16 22:42 | NUR ---
POTASSIUM LEVEL 5.3. NOTIFIED. NO NEW ORDERS GIVEN.
--- NOTE | 2019-06-16 22:55 | NUR ---
VS: BP-109/58, HR-64, OSAT-99%, RR-19. PT RESTING IN BED EYES OPEN LOOKING AT PHONE. RESPIRATIONS ARE EVEN AND UNABORED. SKIN IS WARM AND DRY TO TOUCH. PT HAD C/O NAUSEA. DR GALAVIZ NOTIFIED. AND NEW ORDER OF ZOFRAN 4MG IVP GIVEN. PT URINATED IN URINAL 300ML PF PINK URINE. DOPMANIE IV RUNNING AT 5ML/HR. IV SITE IS PATENT, NO REDNESS OR SWELLING NOTED. WILL CONTINUE TO [facility].
--- NOTE | 2019-06-16 23:45 | NUR ---
Patient will be admitted to care of . Admited to ICU. Will go to room 2. Belongings list completed. Report to CODY PATEL.
[2019-06-16] MEDS ORDERED: LACT10SO1 PO (23:47)
[2019-06-16] MEDS ORDERED: ZINC220C12 PO (23:47)
[2019-06-16] MEDS ORDERED: SPIR50TA PO (23:47)
[2019-06-16] MEDS ORDERED: [UNRECOGNIZED DRUG - CODE] PO (23:47)
[2019-06-17] VITALS (17 sets, daily range): BP systolic 92–126; BP diastolic 39–66
[2019-06-17] MEDS ORDERED: MORPHINE SULFATE 2 MG/ML SYR IVP PRN (00:35)
[2019-06-17] MEDS ORDERED: ONDANSETRON 4 MG/2 ML VIAL IVP PRN (00:35)
[2019-06-17] MEDS ORDERED: DOPamine 400 MG/D5W PREMIX 250 ML IV PRN (00:35)
[2019-06-17] MEDS ORDERED: ACETAMINOPHEN 325 MG TAB PO PRN (00:35)
--- NOTE | 2019-06-17 01:30 | NUR ---
DOPAMINE DRIP HELD AT THIS TIME. WILL CONTINUE TO MONITOR.
[2019-06-17] MEDS ORDERED: MORPHINE SULFATE 2 MG/ML SYR ONE (01:36)
--- NOTE | 2019-06-17 01:40 | NUR ---
PT C/O OF 12/26 CONTINUOUS PRESSURE PAIN IN LOWER BACK AREA. 1MG OF MORPHINE GIVEN.
[2019-06-17] MEDS: NACL 0.9% 1,000 ML IV SCH ×3 (01:49→20:35)
--- NOTE | 2019-06-17 03:20 | NUR ---
PT AWAKE, LYING IN BED, USING CELLPHONE. VITAL SIGNS STABLE. NO DISTRESS NOTED. DENIES PAIN. HOB 30 DEGREES. BED LOCKED IN LOWEST POSITION. WILL CONTINUE TO MONITOR.
--- NOTE | 2019-06-17 05:26 | NUR ---
PT HAS EYES CLOSED, RESTING IN BED. PT IS SELF REPOSITIONING. VITAL SIGNS STABLE. NO SOB OR DISTRESS NOTED. WILL CONTINUE TO MONITOR.
--- NOTE | 2019-06-17 06:20 | NUR ---
PT HAS EYES CLOSED, RESTING IN BED. VITAL SIGNS STABLE. NO SOB OR DISTRESS NOTED. HOB 30 DEGREES. BED LOCKED IN LOWEST POSITION. WILL CONTINUE TO MONITOR.
[2019-06-17 07:05] LABS: BASOPHILS % (AUTO) 0.3 % (0.0-2.0); EOSINOPHILS # (AUTO) 0.1 K/uL (0-0.4); EOSINOPHILS % (AUTO) 2.1 % (0.0-4.0); HEMATOCRIT 24.1 % (36-52); HEMOGLOBIN 8.3 g/dL (12.0-18.0); LYMPHOCYTES # (AUTO) 1.1 K/uL (2.0-11.5); LYMPHOCYTES % (AUTO) 24.9 % (20.5-51.1); MEAN CORPUSCULAR HEMOGLOBIN 39 pg (27-31); MEAN CORPUSCULAR HGB CONC 35 g/dL (33-37); MEAN CORPUSCULAR VOLUME 111.7 fL (80-94); MONOCYTES # (AUTO) 0.4 K/uL (0.8-1.0); MONOCYTES % (AUTO) 8.9 % (1.7-9.3); NEUTROPHILS # (AUTO) 2.7 K/uL (1.8-7.7); NEUTROPHILS % (AUTO) 63.8 % (42.2-75.2); PLATELET COUNT (AUTO) 104 K/uL (140-450); RED BLOOD CELL COUNT(AUTO) 2.16 MIL/uL (4.20-6.10); RED CELL DISTRIBUTION WIDTH 16.1 % (11.6-13.7); WHITE BLOOD COUNT (AUTO) 4.2 K/uL (4.8-10.8)
--- NOTE | 2019-06-17 07:25 | NUR ---
REPORT GIVEN TO DEIDRE PATEL FOR CONTINUITY OF CARE.
--- NOTE | 2019-06-17 07:26 | NUR ---
RECEIVED REPORT FROM FRONT OFFICE SPEC RN. PT AWAKE. A/O X4. MAKES NEEDS KNOWN. IN ROOM AIR 99%. NO SOB OR RESPIRATORY DISTRESS NOTED. BP 94/51. SKIN DRY AND WARM TO TOUCH. YELLOW SCLERA NOTED ON BOTH EYES. LUNGS SOUND CLEAR. PERIPHERAL LINES NOTED ON LAC AND RAC. INTACT LINES. FLUSHED. NS INFUSING AT 100 ML/HR. ABDOMEN SOFT, ROUND AND TENDER. PT REPORTS MILD PAIN. DOES NOT WANT PAIN MEDS AT THIS TIME. ALSO REPORTS NAUSEA. WILL GIVE ZOFRAN PER ORDER. SKIN INTACT. MILD EDEMA NOTED ON RIGHT LOWER LEG. HOB ELEVATED. BED IN LOW POSITION LOCKED. WILL CONTINUE TO MONITOR.
[2019-06-17 07:29] LABS: ALBUMIN 2.8 g/dL (3.4-5.0); ANION GAP 11.6 (8-16); CARBON DIOXIDE 30.1 mmol/L (21-32); CREATININE 0.8 mg/dL (0.7-1.3); POTASSIUM 4.7 mmol/L (3.5-5.1); TOTAL BILIRUBIN 10.9 mg/dL (0.0-1.0)
[2019-06-17 07:32] LABS: PROTHROMBIN TIME 17.8 secs (10.8-13.4)
--- NOTE | 2019-06-17 08:15 | NUR ---
PT REFUSED BREAKFAST AT THIS TIME.
--- NOTE | 2019-06-17 08:46 | NUR ---
PATIENT HAS BEEN SCREENED AND CATEGORIZED HIGH NUTRITION RISK. PATIENT WILL BE SEEN WITHIN 1-2 DAYS OF ADMISSION. 06/17/19-06/18/[address]
[2019-06-17] MEDS ORDERED: ZOLPIDEM 5 MG TAB PO PRN (10:50)
[2019-06-17] MEDS ORDERED: MIDODRINE 5 MG TAB PO PRN (10:50)
--- NOTE | 2019-06-17 11:00 | NUR ---
PT EVALUATED BY DR. HARRELL. UPDATED PT STATUS AND MADE AWARE OF PT CONCERN REGARDING LASIX, LAB RESULTS: ALBUMIN 2.8, ALT 47 AND HB 8.3. RECEIVED NEW ORDER. WILL CARRYOUT ORDER. PT CAN BE TRANSFERRED TO TELE UNIT PER DR. HARRELL.
--- NOTE | 2019-06-17 11:35 | NUR ---
PT TRANSFERRED TO TELE UNIT ROOM 105A ON STABLE CONDITION. REPORT GIVEN TO JORGE WATSON. BELONGINGS TAKEN WITH PT. PT AND JORGE BRYAN.
--- NOTE | 2019-06-17 11:41 | NUR ---
DISCHARGE PLANNIN49 Y/O MALE PATIENT FROM HOME, WHO CAME IN DUE TO SYNCOPE. PAST MEDICAL HISTORY INCLUDE CIRRHOSIS AND DIABETES. INITIAL DIAGNOSIS OF CIRRHOSIS AND HYPOTENSION. CURRENT LABS INCLUDE WBC 4.2, H/H 8.3/24.1, NA/K 138/4.7, BUN/CREA 23/0.8, AMYLASE/LIPASE 200/399. NORMAL CXR ON ADMISSION. CT ABD/PELVIS SHOWED HEPATOSPLENOMEGALY AND HEPATIC CIRRHOSIS, CHOLELITHIASIS. U/S ABD SHOED CHOLELITHIASIS WITH POSSIBLE CHOLECYSTITIS. ON ZOSYN. NO CONSULTS AT THIS TIME. DC PLAN PENDING ON PATIENT'S RESPONSE TO TREATMENT.
--- NOTE | 2019-06-17 12:00 | NUR ---
RECEIVED REPORT FROM ICU NURSE DEIDRE. [facility], NKA. PATIENT IS AAOX4, AMBULATORY. USES URINAL AT BEDSIDE D/T CC GENERALIZED WEAKNESS. PATIENT HAS A L. AC 22G AND R. AC 20G. PATIENT IS ON ROOM AIR, CCHO DIET. CURRENTLY AWAKE, NO RESP DISTRESS NOTED. ADMITTING STRIP TO TELE, SINUS RHYTHM WITH PACS. WILL REVIEW PLAN OF CARE FOR THE DAY.
[2019-06-17] MEDS: PIPERACILLIN/TAZOBACTAM 3.375 GM in DEXTROSE 5% 50 ML IV SCH ×3 (12:43→23:04)
--- NOTE | 2019-06-17 12:55 | NUR ---
BEGAN ZOSYN IVPB INFUSION. PATIENT IS SITTING UP IN BED EATING LUNCH
[2019-06-17] MEDS: ALBUMIN HUMAN 25% 100 ML IV SCH ×2 (13:00→22:54)
--- NOTE | 2019-06-17 13:53 | NUR ---
PATIENT IS IN BED GETTING AN ECHO. PATIENT STABLE
--- NOTE | 2019-06-17 14:13 | NUR ---
ALBUMIN INFUSING AT 50ML/HR
--- NOTE | 2019-06-17 15:12 | NUR ---
06/17/19 RD INITIAL ASSESSMENT COMPLETED PLEASE REFER TO NUTRITION ASSESSMENT UNDER CARE ACTIVITY FOR ESTIMATED NUTRITIONAL NEEDS. 1. CONTINUE CARDIAC, CCHO 60 GM DIET TOLERATED 2. FOLLOW PATIENTS FOOD PREFERENCES/REQUESTS 3. IF PO INTAKE <50% RECOMMEND ENSURE BID 4. RD TO FOLLOW-UP 2-3 DAYS, HIGH RISK LLUVIA MCQUEEN RD
--- NOTE | 2019-06-17 18:20 | NUR ---
PATIENT STILL HAS ALBUMIN INFUSING. NO COMPLAINTS AT THIS TIME.
--- NOTE | 2019-06-17 18:36 | NUR ---
BEGAN ZOSYN INFUSION ON RIGHT AC. PATIENT IS AWAKE AND ALERT IN BED. ALL NEEDS HAVE BEEN MET. WILL ENDORSE TO AUTOS DISASSEMBLER FOR CONTINUITY OF CARE
--- NOTE | 2019-06-17 19:20 | NUR ---
RECEIVED BEDSIDE REPORT FROM DAY SHIFT NURSE. PATIENT IS AWAKE, ALERT, AND COOPERATIVE RESPIRATION EVEN UNLABORED ON ROOM AIR. NO DISTRESS NOTED. SKIN IS WARM AND DRY. IV PATENT AND INTACT. PLAN OF CARE WAS DISCUSSED. ALL SAFETY MEASURES IN PLACE. BED IS AT LOW POSITION. CALL LIGHT WITHIN REACH AND VERBALIZES ITS USE WILL CONTINUE TO MONITOR.
--- NOTE | 2019-06-17 19:25 | NUR ---
PATIENT IV ALBUMIN STILL RUNNING. CALLED PHARMACY REGARDING THE SECOND DOSE OF ALBUMIN. PHARMACY RECOMMENDED TO GIVE THE SECOND DOSE AT 2300 INSTEAD OF 2100.
--- NOTE | 2019-06-17 20:16 | NUR ---
INITIAL ASSESSMENT DONE. VITALS WERE TAKEN. PATIENT IN STABLE CONDITION. FAMILY MEMBER AT BEDSIDE. WILL CONTINUE TO MONITOR.
--- NOTE | 2019-06-17 22:30 | NUR ---
PATIENT WATCHING TV RESPIRATION EVEN UNLABORED ON ROOM AIR. NO DISTRESS NOTED. WILL CONTINUE TO MONITOR.
--- NOTE | 2019-06-17 23:00 | NUR ---
ALBUMIN IV BAG GIVEN. VITALS WERE TAKEN. PATIENT COMPLAINED OF 8/10 PAIN. ALSO WANT SOME SLEEPING AID. PRN PAIN MED AND SLEEPING AID GIVEN PER ORDER. WILL CONTINUE TO MONITOR.
[2019-06-18] VITALS: BP 113/68
--- NOTE | 2019-06-18 01:06 | NUR ---
CHECKED PATIENT. PATIENT TALKING ON THE PHONE. RESPIRATION EVEN UNLABORED ON ROOM AIR. NO DISTRESS NOTED. WILL CONTINUE TO MONITOR
--- NOTE | 2019-06-18 02:58 | NUR ---
CHECKED PATIENT. PATIENT SLEEPING RESPIRATION EVEN UNLABORED ON ROOM AIR. NO DISTRESS NOTED. WILL CONTINUE TO MONITOR.
[2019-06-18 04:00] VITALS: BP 111/69
--- NOTE | 2019-06-18 04:12 | NUR ---
VITALS WERE TAKEN. PATIENT IN STABLE CONDITION. NO DISTRESS NOTED. WILL CONTINUE TO MONITOR.
[2019-06-18] MEDS: ALBUMIN HUMAN 25% 100 ML IV SCH (04:51)
[2019-06-18] MEDS: PIPERACILLIN/TAZOBACTAM 3.375 GM in DEXTROSE 5% 50 ML IV SCH (05:32)
[2019-06-18] MEDS: NACL 0.9% 1,000 ML IV SCH (06:35)
--- NOTE | 2019-06-18 07:00 | NUR ---
RECEIVED PT FROM INSPECTOR HEATING AND REFRIGERATION, MERLYN. PT IS AWAKE AND ORIENTED. WITH IV ON L AC 22G INFUSING AT 100ML/HR. FAMILY AT BEDSIDE. PT IS ON CARDIAC DIET, FULL CODE, SKIN INTACT. PT HAS NKA.
--- NOTE | 2019-06-18 07:14 | NUR ---
ENDORSED PATIENT TO DAY SHIFT NURSE. PATIENT IN STABLE CONDITION
[2019-06-18 07:15] LABS: BASOPHILS % (AUTO) 0.1 % (0.0-2.0); EOSINOPHILS # (AUTO) 0.1 K/uL (0-0.4); EOSINOPHILS % (AUTO) 1.9 % (0.0-4.0); HEMATOCRIT 21.1 % (36-52); HEMOGLOBIN 7.3 g/dL (12.0-18.0); LYMPHOCYTES % (AUTO) 24.6 % (20.5-51.1); MEAN CORPUSCULAR HEMOGLOBIN 39 pg (27-31); MEAN CORPUSCULAR HGB CONC 35 g/dL (33-37); MEAN CORPUSCULAR VOLUME 111.1 fL (80-94); MONOCYTES # (AUTO) 0.4 K/uL (0.8-1.0); MONOCYTES % (AUTO) 9.2 % (1.7-9.3); NEUTROPHILS # (AUTO) 2.6 K/uL (1.8-7.7); NEUTROPHILS % (AUTO) 64.2 % (42.2-75.2); PLATELET COUNT (AUTO) 94 K/uL (140-450); RED CELL DISTRIBUTION WIDTH 16.1 % (11.6-13.7)
[2019-06-18 07:21] LABS: ALBUMIN 3.1 g/dL (3.4-5.0); ANION GAP 15.2 (8-16); CARBON DIOXIDE 28.5 mmol/L (21-32); CREATININE 0.9 mg/dL (0.7-1.3); POTASSIUM 4.7 mmol/L (3.5-5.1); TOTAL BILIRUBIN 12.4 mg/dL (0.0-1.0)
[2019-06-18 08:00] VITALS: BP 124/79
[2019-06-18 12:00] VITALS: BP 107/53
[2019-06-18] MEDS ORDERED: INFLUENZA VACCINE QUAD 0.5 ML SYR IMVAC SCH (13:15)
[2019-06-18] MEDS ORDERED: PNEUMOCOCCAL VACCINE 23 MCG/0.5 ML VIAL IMVAC SCH (13:15)
--- NOTE | 2019-06-18 13:58 | NUR ---
PT IS FOR D/C. DC INSTRUCTIONS GIVEN TO PT IN PREFERRED LANGUAGE [facility]. INSTRUCTIONS ON FF-UP PCP APPOINTMENT, DIET REGIMEN, ANSWERED ALL PT'S QUESTIONS REGARDING THE D/C. PT VERBALIZED UNDERSTANDING. D/C PAPERS WITH INSTRUCTIONS GIVEN TO THE PT.
== END 2019-06-18 14:13 | disposition home or self-care (01) | DRG 207 ==
LOC: MED 17:48 → MIC 22:19 → UNDOADMIN 22:19 → MTU 06-17 11:35
PROVIDERS: ADMIT Internal Medicine Pulmonary Disease; ATTEND Internal Medicine Pulmonary Disease
DX: I95.9 Hypotension, unspecified (principal); E44.0 Moderate protein-calorie malnutrition; K74.60 Unspecified cirrhosis of liver; E86.0 Dehydration; I83.90 Asymptomatic varicose veins of unspecified lower extremity; I10 Essential (primary) hypertension; E11.9 Type 2 diabetes mellitus without complications; Z90.49 Acquired absence of other specified parts of digestive tract; F10.10 Alcohol abuse, uncomplicated; Y90.9 Presence of alcohol in blood, level not specified; Z68.25 Body mass index [BMI] 25.0-25.9, adult
CPT/HCPCS: 36415; 71045; 76700; 80053; 80305; 81003; 82009; 82140; 82150; 82977; 83690; 83735; 83880; 84484; 85025; 85610; 85730; 87081; 87804; 90732; 93005; 96365; 96366; 96375; 99285; G0482; J1265; J2270; J2405; J2543; J3490; J7030; J7060; P9041; P9046; Q0092

== ENCOUNTER 2019-07-03 13:26 | Inpatient (IN) | payer OTHER ==
[~2019-07-03] VITALS: Ht 172.7 cm; Wt 75.3 kg
[~2019-07-03 13:26] MED LIST changes: +LACT10SO1 PO; +SPIR50TA PO; +ZINC220C12 PO; +[UNRECOGNIZED DRUG - CODE] PO
[2019-07-03 13:36] VITALS: BP 105/58
--- NOTE | 2019-07-03 13:48 | NUR ---
WAIT AT LOBBY.
--- NOTE | 2019-07-03 13:54 | NUR ---
PT AMB WITH CANE TO BED 12.
[2019-07-03] MEDS ORDERED: NACL 0.9% 1,000 ML IV SCH (14:14)
--- NOTE | 2019-07-03 14:20 | NUR ---
49/M C/O NAUSEA, GENERALIZED ABDOMINAL PAIN X 3 DAYS. PAIN STARTED FROM THE LT LOWER BACK. NOW PAIN IS GENERALIZED ABD, WORSE AT LEFT ABD AND RADIATING DOWN TO THE LEFT TESTICLE. DENIES TESTICULAR SWELLING. STATES MILD DYSURIA. PT HAS BEEN FEELING WEAK. MED HX:CIRRHOSIS WITH ASCITES, HEMORRHOIDS
[2019-07-03 14:40] LABS: APPEARANCE,URINE CLEAR (CLEAR); BILIRUBIN,URINE 1+ (NEGATIVE); BLOOD, URINE NEGATIVE (NEGATIVE); COLOR,URINE YELLOW (YELLOW); LEUKOCYTE ESTERASE ,URINE TRACE (NEGATIVE); NITRITE, URINE NEGATIVE (NEGATIVE); PH,URINE 5.5 (5.0-9.0); UGLUCOSE NEGATIVE (NEGATIVE)
[2019-07-03 14:47] LABS: BASOPHILS % (AUTO) 0.1 % (0.0-2.0); EOSINOPHILS # (AUTO) 0.1 K/uL (0-0.4); EOSINOPHILS % (AUTO) 1.6 % (0.0-4.0); HEMATOCRIT 25.9 % (36-52); LYMPHOCYTES # (AUTO) 1.7 K/uL (2.0-11.5); LYMPHOCYTES % (AUTO) 21.9 % (20.5-51.1); MEAN CORPUSCULAR HEMOGLOBIN 39 pg (27-31); MEAN CORPUSCULAR HGB CONC 35 g/dL (33-37); MEAN CORPUSCULAR VOLUME 110.8 fL (80-94); MONOCYTES # (AUTO) 0.7 K/uL (0.8-1.0); MONOCYTES % (AUTO) 9.5 % (1.7-9.3); NEUTROPHILS # (AUTO) 5.2 K/uL (1.8-7.7); NEUTROPHILS % (AUTO) 66.9 % (42.2-75.2); PLATELET COUNT (AUTO) 135 K/uL (140-450); RED BLOOD CELL COUNT(AUTO) 2.34 MIL/uL (4.20-6.10); RED CELL DISTRIBUTION WIDTH 16.1 % (11.6-13.7); WHITE BLOOD COUNT (AUTO) 7.8 K/uL (4.8-10.8)
[2019-07-03 15:17] LABS: ALBUMIN 3.3 g/dL (3.4-5.0); ANION GAP 12.4 (8-16); CARBON DIOXIDE 30.7 mmol/L (21-32); CREATININE 0.9 mg/dL (0.7-1.3); POTASSIUM 5.1 mmol/L (3.5-5.1); TOTAL BILIRUBIN 11.4 mg/dL (0.0-1.0)
--- NOTE | 2019-07-03 18:58 | NUR ---
NOTIFIED DR SHERWOOD THAT PT IS C/O INTOLERABLE PAIN AND REQUESTING PAIN MED.
--- NOTE | 2019-07-03 19:06 | NUR ---
REPORT TO LILIAN PATEL, TRANSFER OF CARE AT THIS TIME.
--- NOTE | 2019-07-03 19:08 | NUR ---
REPORT RECEIVED FROM JORGE BURCH. ASSUMED CARE AT THIS TIME.
[2019-07-03] MEDS ORDERED: MORPHINE SULFATE 4 MG/ML SYR IVP PRN (19:20)
[2019-07-03] MEDS ORDERED: ONDANSETRON 4 MG/2 ML VIAL IVP PRN (19:20)
[2019-07-03] MEDS ORDERED: ALBUTEROL 0.083% 2.5 MG/3 ML NEBU INH PRN (19:20)
[2019-07-03] MEDS ORDERED: ACETAMINOPHEN 325 MG TAB PO PRN (19:20)
--- NOTE | 2019-07-03 19:30 | NUR ---
PT SEATED UPRIGHT. BEDRAIL X2 UP. WILL CONTINUE TO MONITOR.
--- NOTE | 2019-07-03 20:00 | NUR ---
Dr. Hu examining patient.
[2019-07-03] MEDS ORDERED: SODIUM PHOSPHATE 118 ML ENEM RC SCH (20:10)
[2019-07-03] MEDS ORDERED: LACTULOSE 20 GM/30 ML UDC PO SCH (20:15)
--- NOTE | 2019-07-03 20:40 | NUR ---
RECEIVED FROM ER PER WHEELCHAIR AWAKE AND ALERT. ABLE TO VERBALIZE NEEDS WELL IN CROATIAN. ORIENTED X 4. CLEAR SPEECH. NO SOB. PT. CARE PLANS FOR THE NIGHT DISCUSSED WITH HIM AND CALL LIGHT USE EXPLAINED. SKIN INTACT. CTAB. DX. OF BOWEL OBSTRUCTION AND FECAL IMPACTION. AFEBRILE.
--- NOTE | 2019-07-03 20:50 | NUR ---
Patient will be admitted to care of DR. SARGENT. Admited to [facility]. Will go to room 126A Belongings list completed. Report to JORGE DIAZ. TRANSFER OF CARE A THIS TIME
[2019-07-03] MEDS: DOCUSATE SODIUM 100 MG GELCAP PO SCH (21:00)
[2019-07-03] MEDS ORDERED: SENNA 8.6 MG TAB PO SCH (21:00)
[2019-07-03 21:41] VITALS: BP 93/44
[2019-07-03] MEDS ORDERED: cefTRIAXone 1,000 MG VIAL ONE (22:00)
[2019-07-03] MEDS: DEXT 5% /NACL 0.9% 1,000 ML IV SCH (22:10)
[2019-07-03] MEDS: HYDROcodone/APAP 5/325 MG 1 TAB TAB PO PRN (22:13)
--- NOTE | 2019-07-03 23:12 | NUR ---
IN HERE VISITING. NO COMPLAINTS DONE. REQUESTED TO STAY FOR A WHILE TO ASSIST SPOUSE IN GOING RESTROOM RT WITH LAXATIVES. CALL LIGHT WITH IN REACH.
[2019-07-04] VITALS: BP 96/50
[2019-07-04] MEDS: LACTULOSE 20 GM/30 ML UDC PO SCH ×4 (00:53→17:11)
--- NOTE | 2019-07-04 02:13 | NUR ---
PT. ABLE TO GO RESTROOM TO HAVE BOWEL MOVEMENTS. CALL LIGHT WITH IN REACH. SLEEPS IN AND OUT RT LAXATIVE EFFECTS.
--- NOTE | 2019-07-04 04:30 | NUR ---
SLEEPING. NO COMPLAINTS DONE. CALL LIGHT WITH IN REACH.
[2019-07-04 05:04] VITALS: BP 91/44
[2019-07-04] MEDS: DEXT 5% /NACL 0.9% 1,000 ML IV SCH ×2 (05:20→15:47)
[2019-07-04 07:04] LABS: PROTHROMBIN TIME 17.7 secs (10.8-13.4)
[2019-07-04 07:30] LABS: BASOPHILS % (AUTO) 0.2 % (0.0-2.0); EOSINOPHILS # (AUTO) 0.1 K/uL (0-0.4); EOSINOPHILS % (AUTO) 2.1 % (0.0-4.0); HEMATOCRIT 22.1 % (36-52); HEMOGLOBIN 7.9 g/dL (12.0-18.0); LYMPHOCYTES # (AUTO) 1.4 K/uL (2.0-11.5); LYMPHOCYTES % (AUTO) 26.9 % (20.5-51.1); MEAN CORPUSCULAR HEMOGLOBIN 39 pg (27-31); MEAN CORPUSCULAR HGB CONC 36 g/dL (33-37); MEAN CORPUSCULAR VOLUME 110.5 fL (80-94); MONOCYTES # (AUTO) 0.5 K/uL (0.8-1.0); NEUTROPHILS # (AUTO) 3.2 K/uL (1.8-7.7); NEUTROPHILS % (AUTO) 61.8 % (42.2-75.2); PLATELET COUNT (AUTO) 104 K/uL (140-450); RED CELL DISTRIBUTION WIDTH 15.9 % (11.6-13.7); WHITE BLOOD COUNT (AUTO) 5.1 K/uL (4.8-10.8)
--- NOTE | 2019-07-04 07:30 | NUR ---
RECEIVED BEDSIDE REPORT FROM PM RN PT AWAKE IN BED ALL SAFETY MEASURES ARE IN PLACE. WILL CONTINUE TO MONITOR. IVF INFUSING. IV SITE PATENT AND SHOWS NO SIGNS OF INFILTRATION OR INFLAMMATION
--- NOTE | 2019-07-04 07:30 | NUR ---
ENDORSED TO AM RN AWAKE AND ALERT. NO SOB. DENIES PAIN. ABLE TO VERBALIZE NEEDS WELL.
[2019-07-04 08:00] VITALS: BP 99/53
[2019-07-04 08:18] LABS: MAGNESIUM 1.8 mg/dL (1.8-2.4); PHOSPHORUS 5.5 mg/dL (2.5-4.9)
[2019-07-04 08:24] LABS: ANION GAP 11.1 (8-16); CARBON DIOXIDE 29.6 mmol/L (21-32); CREATININE 0.8 mg/dL (0.7-1.3); POTASSIUM 4.7 mmol/L (3.5-5.1)
[2019-07-04] MEDS: DOCUSATE SODIUM 100 MG GELCAP PO SCH (08:41)
[2019-07-04] MEDS ORDERED: THIAMINE 100 MG TAB PO SCH (09:00)
[2019-07-04] MEDS ORDERED: CYANOCOBALAMIN 250 MCG PO SCH (09:00)
[2019-07-04] MEDS ORDERED: VIT-B COMP/VIT-C/FOLIC ACID 1 TAB PO SCH (09:00)
[2019-07-04] MEDS ORDERED: CYANOCOBALAMIN 100 MCG TAB PO SCH (09:00)
[2019-07-04] MEDS ORDERED: ZINC SULF 220 MG CAP PO SCH (09:00)
--- NOTE | 2019-07-04 09:05 | NUR ---
PATIENT HAS BEEN SCREENED AND CATEGORIZED MODERATE NUTRITION RISK. PATIENT WILL BE SEEN WITHIN 3-5 DAYS OF ADMISSION. 07/06/19 07/08/[address]
--- NOTE | 2019-07-04 09:15 | NUR ---
FREQUENT ROUNDING ON PT PT APPEARS STABLE AND IN NO APPARENT DISTRESS. ALL SAFETY MEASURES ARE IN PLACE WILL CONTINUE TO MONITOR.
--- NOTE | 2019-07-04 11:34 | NUR ---
FREQUENT ROUNDING ON PT PT APPEARS STABLE AND IN NO APPARENT DISTRESS. ALL SAFETY MEASURES ARE IN PLACE WILL CONTINUE TO MONITOR.
--- NOTE | 2019-07-04 15:02 | NUR ---
FREQUENT ROUNDING ON PT PT AWAKE IN BED PT APPEARS STABLE AND IN NO APPARENT DISTRESS. PT AMBULATING THROUGHOUT THE UNIT WITH HIS DAUGHTER. ALL SAFETY MEASURES ARE IN PLACE WILL CONTINUE TO MONITOR.
[2019-07-04] MEDS: HYDROcodone/APAP 5/325 MG 1 TAB TAB PO PRN (16:00)
--- NOTE | 2019-07-04 17:16 | NUR ---
FREQUENT ROUNDING ON PT PT AWAKE IN BED PT APPEARS STABLE AND IN NO APPARENT DISTRESS. ALL SAFETY MEASURES ARE IN PLACE WILL CONTINUE TO MONITOR. PT FAMILY MEMBER AT BEDSIDE.
--- NOTE | 2019-07-04 19:16 | NUR ---
ENDORSED PT TO PM RN PT AWAKE IN BED PT APPEARS STABLE AND IN NO APPARENT DISTRESS. ALL SAFETY MEASURES ARE IN PLACE
--- NOTE | 2019-07-04 19:17 | NUR ---
RECEIVED BEDSIDE REPORT FROM AM SHIFT JORGE ARMENTA. PT AWAKE IN BED, ALERT ORIENTED, AMBULATORY W/ CANE. IVF INFUSING. W/ IV SITE L AC G 20 WITH IVF RUNNING D51/2 NS AT 100 ML/HR. PATENT AND SHOWS NO SIGNS OF INFILTRATION OR INFLAMMATION, ALL SAFETY MEASURES ARE IN PLACE. WILL CONTINUE TO MONITOR.
--- NOTE | 2019-07-04 19:24 | NUR ---
RECEIVED ORDER FROM CLEMENTINA MANZO AND DR. CHOWDHURY, PRIMARY MD THAT PT CAN BE DISCHARGED. DOCUMENTATION STARTED ON DISCHARGE.
[2019-07-04] MEDS ORDERED: MIRABULK PO ×4 (19:55→20:21)
[2019-07-04 20:00] VITALS: BP 100/56
--- NOTE | 2019-07-04 20:00 | NUR ---
GOT LAST VITALS, WNL,PT IN STABLE CONDITION
[2019-07-04 20:31] VITALS: BP_SYST 100
--- NOTE | 2019-07-04 21:00 | NUR ---
GAVE THE DISCHARGE PAPERS WITH PATIENT AND TALIA SIGNED FOR PT WAS SLEEPING. GAVE THE DISCHARGE INSTRUCTIONS. IMMUNIZATION UPTO DATE.
--- NOTE | 2019-07-04 21:35 | NUR ---
PT WHEELED TO EXIT VIA WHEELCHAIR AND WALKED W/ CANE TO THE CAR. NO SOB, NO RESPIRATORY DISTRESS. NO COMPLAINTS OF PAIN. PT IN STABLE CONDITION
== END 2019-07-04 21:35 | disposition home or self-care (01) | DRG 247 ==
LOC: MED 13:26 → MMU 19:17 → MTU 20:40
PROVIDERS: ADMIT Internal Medicine; ATTEND Internal Medicine
DX: K56.609 Unspecified intestinal obstruction, unspecified as to partial versus complete obstruction (principal); D68.9 Coagulation defect, unspecified; K70.30 Alcoholic cirrhosis of liver without ascites; D64.9 Anemia, unspecified; E11.9 Type 2 diabetes mellitus without complications; D75.89 Other specified diseases of blood and blood-forming organs; F10.20 Alcohol dependence, uncomplicated; K56.41 Fecal impaction; K56.7 Ileus, unspecified; N39.0 Urinary tract infection, site not specified; I10 Essential (primary) hypertension; Z90.49 Acquired absence of other specified parts of digestive tract
CPT/HCPCS: 36415; 74018; 80048; 80053; 81001; 82140; 82150; 83690; 83735; 84100; 85025; 85610; 85730; 87081; 87086; 94640; 99285; J0696; J7042; J7060; Q9967

== ENCOUNTER 2019-08-15 17:09 | Inpatient (IN) | payer OTHER ==
[~2019-08-15] VITALS: Ht 172.7 cm; Wt 83.9 kg
[~2019-08-15 17:09] MED LIST changes: -FURO-572 PO; -LACT10SO1 PO; +MIRABULK PO; -ONDA4TAB PO; -SPIR50TA PO; -ZINC220C12 PO; +ZINC220C28 PO
[2019-08-15 17:18] VITALS: BP 105/67
--- NOTE | 2019-08-15 17:31 | NUR ---
LOW BACK PAIN SECONDARY TO FALL BACKWARDS ONTO GRASS WHILE FLYING KITE. BUTTOCKS HIT GRASS FIRST AND THEN HIT HEAD. PAIN WORST AT LOW BACK. UNABLE TO STAND OR MOVE AFTER FALL. NO PAIN RADIATION DOWN TO LEGS. +SENSATION AND MOVEMENT TO BL LEGS. NO URINARY OR BOWEL INCONTINENCE. 7/10 TOLERABLE WHEN LYING COMPLETELY STILL AND SUPINE +SCLERAL ICTERUS PMHX---LIVER CIRROSIS, HYPOTENSION NKA BUT UNABLE TO TAKE HIGH DOSE PAIN MEDICATIONS DUE TO LIVER.
[2019-08-15] MEDS ORDERED: NACL 0.9% 1,000 ML IV ONE ×2 (18:15→23:35)
[2019-08-15] MEDS ORDERED: MORPHINE SULFATE 4 MG/ML SYR IVP ONE (18:15)
[2019-08-15] MEDS ORDERED: KETOROLAC 30 MG/ML VIAL IVP ONE (18:15)
--- NOTE | 2019-08-15 18:35 | NUR ---
CAR BRACER AT BEDSIDE FOR BLOOD DRAW
--- NOTE | 2019-08-15 18:39 | NUR ---
DOMESTIC HELPER AT BEDSIDE--TO TAKE PT TO CT SCAN
[2019-08-15 18:48] LABS: BASOPHILS % (AUTO) 0.2 % (0.0-2.0); EOSINOPHILS # (AUTO) 0.1 K/uL (0-0.4); EOSINOPHILS % (AUTO) 1.7 % (0.0-4.0); LYMPHOCYTES # (AUTO) 0.8 K/uL (2.0-11.5); LYMPHOCYTES % (AUTO) 13.8 % (20.5-51.1); MEAN CORPUSCULAR HEMOGLOBIN 39 pg (27-31); MEAN CORPUSCULAR HGB CONC 36 g/dL (33-37); MEAN CORPUSCULAR VOLUME 106.9 fL (80-94); MONOCYTES # (AUTO) 0.7 K/uL (0.8-1.0); NEUTROPHILS # (AUTO) 4.1 K/uL (1.8-7.7); NEUTROPHILS % (AUTO) 72.3 % (42.2-75.2); PLATELET COUNT (AUTO) 84 K/uL (140-450); RED BLOOD CELL COUNT(AUTO) 1.79 MIL/uL (4.20-6.10); RED CELL DISTRIBUTION WIDTH 16.3 % (11.6-13.7); WHITE BLOOD COUNT (AUTO) 5.6 K/uL (4.8-10.8)
[2019-08-15 19:05] LABS: HEMATOCRIT 19.1 % (36-52)
--- NOTE | 2019-08-15 19:08 | NUR ---
REPORT TO JESSE PATEL, TRANSFER OF CARE AT THIS TIME.
--- NOTE | 2019-08-15 19:10 | NUR ---
RECIVED REPORT FROM KIERSTEN PATEL. CONTINUATION OF CARE.
--- NOTE | 2019-08-15 19:20 | NUR ---
PT AAO X4. RESPIRATIONS ARE EVEN AND UNLABORED. PT DENIES N/V/D. PT GIVEN MORPHINE 4 MG IVP AND TORADOL 30MG IVP @ 1830. PT STATES LOW BACK PAIN HAS DECREASED FROM 03/28 TO 11/26. PT CMS INTACT TO LE BILAT. CAP REFILL <3, PEDAL PULSES STRONG AND EQUAL BILAT. PT CONTINENT OF BOWEL AND BLADDER. URINAL AT BEDSIDE. PT CURRENTLY SUPINE, "I FEEL COMFORTABLE IN THIS POSTION." PT IV SITE IS AT L AC 20G. NS 0.9% 1000ML RUNNING AT 100 ML/HR. IV SITE IS PATENT. NO REDNESS, SWELLING NOTED. PT DENIES PAIN AT IV SITE. DAUGHTER AT BEDSIDE. PT ON MONITOR. BED LOCKED AND IN LOWEST POSITION.
[2019-08-15 19:51] LABS: ALBUMIN 2.1 g/dL (3.4-5.0); ANION GAP 5.5 (8-16); CARBON DIOXIDE 34.6 mmol/L (21-32); CREATININE 1.4 mg/dL (0.6-1.3); POTASSIUM 5.1 mmol/L (3.5-5.1); TOTAL BILIRUBIN 10.4 mg/dL (0.0-1.0)
[2019-08-15] MEDS ORDERED: LORazepam 2 MG/ML VIAL IVP PRN (20:10)
[2019-08-15] MEDS ORDERED: MORPHINE SULFATE 4 MG/ML SYR IVP PRN (20:10)
[2019-08-15] MEDS ORDERED: ONDANSETRON 4 MG/2 ML VIAL IVP PRN (20:10)
[2019-08-15] MEDS ORDERED: ALBUTEROL 0.083% 2.5 MG/3 ML NEBU INH PRN (20:10)
[2019-08-15] MEDS ORDERED: HYDROmorphone 1 MG/ML AMP IVP PRN (20:10)
--- NOTE | 2019-08-15 20:24 | NUR ---
PER DR GORE, ORDER FOR PACKED CELLS WILL BE CANCELLED.
--- NOTE | 2019-08-15 21:02 | NUR ---
PT AAO X4. RESPIRATIONS ARE EVEN AND UNLABORED. SKIN IS WARM AND DRY TO TOUCH. CMS INTACT. PULSES STRONG AND EQUAL BILAT IN BOTH LE. PT STATES PAIN IN LOW BACK CONTINUES AT 6/10 BUT IS TOLERABLE. IV FLUIDS RUNNING AT 100 ML/HR. IV SITE PATENT. NO REDNES, SWELLING NOTED. PT DENIES PAIN AT IV SITE. PT ON [facility]. AT BEDSIDE.
[2019-08-15] MEDS ORDERED: SPIR50TA PO (21:18)
[2019-08-15] MEDS ORDERED: FURO-572 PO (21:18)
[2019-08-15] MEDS ORDERED: LACT10SO1 PO (21:18)
[2019-08-15 21:30] VITALS: BP 89/42
--- NOTE | 2019-08-15 21:30 | NUR ---
Admitted from ER TO MED SURGICAL UNIT , with chief complaint of LOWER BACK PAIN /S/P FALL IN THE PLAYGROUND, 49 y/o ,Male, Cooperative, AWAKE, A/OX4. RESPIRATION EVEN AND UNLABORED. IV OF NS INFUSING AT 100 ML/HR, LEFT AC G20. PATIENT IS VERY PARTICULAR IN MOVING HIS BODY SINCE THE FALL, DUE TO PAIN FROM HIS HIP TO LOWER BACK AGGRAVATED BY MOVEMENT, AT PRESENT 09/26, WAS MEDICATED IN ER WITH MORPHINE. AMBULATES WITH A CANE AT HOME. HEAD TO TOE ASSESSMENT DONE WITH CHARGE NURSE KATHRINE, SKIN IS INTACT.oriented to call light, bed, phone,television, bathroom, smoking policy,visiting hours, procedures, ID bracelet on. Belongings list checked.
--- NOTE | 2019-08-15 21:30 | NUR ---
Patient will be admitted to [facility]. Admited to [facility]. Will go to room 125B. Belongings list completed. Report to JUDAH DURAN.
--- NOTE | 2019-08-15 22:00 | NUR ---
REPOSITIONED IN BED WITH TWO PILLOWS ON BILATERAL LOWER EXTREMITIES, WITH 2+ PITTING EDEMA. FEELS BETTER AFTER PUTTING PILLOW UNDER THE HEAD.
--- NOTE | 2019-08-15 23:00 | NUR ---
INFORMED DR. HARRELL, PATIENT HGB IS 7.0, PLATELET IS 84, IF HE WANTS TRANSFUSION FOR THE PATIENT, STATED NO. BLOOD PRESSURE OF PATIENT IS IN THE LOW SIDE, 89/42, 85/37. ORDERED NS BOLUS. PATIENT REFUSED DILAUDID, BELIEVE IT IS TOO STRONG FOR HIM, INQUIRE IF HE WANTS TO ORDER TORADOL OF SOME PAIN PILLS, STATED NO.
[2019-08-15] MEDS ORDERED: ZOLPIDEM 5 MG TAB PO PRN (23:35)
[2019-08-16] VITALS: BP 90/42
--- NOTE | 2019-08-16 | NUR ---
RESTING IN BED, NS BOLUS STARTED. PATIENT REQUESTED THAT IF BOLUS WILL NOT INCREASE HIS BP SO HE CAN HAVE MORPHINE, HE WILL JUST TAKE AMBIEN.
--- NOTE | 2019-08-16 03:10 | NUR ---
INFORMED DR. HARRELL THAT AFTER THE NS BOLUS, BP IS STILL IN THE LOW SIDE, RIGHT ARM - 86/41, LEFT ARM - 87/43. STATED IT'S FINE.
--- NOTE | 2019-08-16 05:15 | NUR ---
SLEEPING COMFORTABLY IN BED.
--- NOTE | 2019-08-16 07:00 | NUR ---
CONDITION REMAIN STABLE. WILL ENDORSED TO AM SHIFT NURSE FOR CONTINUITY OF CARE.
[2019-08-16 07:11] LABS: ANION GAP 9.1 (8-16); CARBON DIOXIDE 29.7 mmol/L (21-32); CREATININE 1.3 mg/dL (0.6-1.3); POTASSIUM 4.8 mmol/L (3.5-5.1)
--- NOTE | 2019-08-16 07:15 | NUR ---
RECEIVED REPORT FROM TELEHEALTH COORDINATOR NURSE JUDAH FOR CONTINUITY OF CARE. PT IN STABLE CONDITION. RESPIRATIONS EVEN AND UNLABORED, ROOM AIR. IV INTACT AND PATENT. SAFETY MEASURES IN PLACE. BED IN LOW POSITION. BED ALARM ON. CALL LIGHT AT BEDSIDE. WILL CONTINUE TO MONITOR.
[2019-08-16 07:16] LABS: BASOPHILS % (AUTO) 0.3 % (0.0-2.0); EOSINOPHILS # (AUTO) 0.1 K/uL (0-0.4); LYMPHOCYTES # (AUTO) 1.4 K/uL (2.0-11.5); LYMPHOCYTES % (AUTO) 22.5 % (20.5-51.1); MEAN CORPUSCULAR HEMOGLOBIN 39 pg (27-31); MEAN CORPUSCULAR HGB CONC 36 g/dL (33-37); MEAN CORPUSCULAR VOLUME 107.8 fL (80-94); MONOCYTES # (AUTO) 0.6 K/uL (0.8-1.0); MONOCYTES % (AUTO) 10.6 % (1.7-9.3); NEUTROPHILS # (AUTO) 3.9 K/uL (1.8-7.7); NEUTROPHILS % (AUTO) 64.6 % (42.2-75.2); PLATELET COUNT (AUTO) 80 K/uL (140-450); RED BLOOD CELL COUNT(AUTO) 1.77 MIL/uL (4.20-6.10); WHITE BLOOD COUNT (AUTO) 6.1 K/uL (4.8-10.8)
[2019-08-16 07:30] LABS: HEMATOCRIT 19.1 % (36-52); HEMOGLOBIN 6.9 g/dL (12.0-18.0)
--- NOTE | 2019-08-16 07:32 | NUR ---
CRITICAL LAB HGB 6.9, HCT 19.1. CHAVO PIEDRA AWARE. ORDERS RECEIVED.
[2019-08-16 08:00] VITALS: BP 92/45
--- NOTE | 2019-08-16 08:09 | NUR ---
PATIENT HAS BEEN SCREENED AND CATEGORIZED MODERATE NUTRITION RISK. PATIENT WILL BE SEEN WITHIN 3-5 DAYS OF ADMISSION. 08/18/19 08/20/[address]
[2019-08-16] MEDS ORDERED: ENOXAPARIN 40 MG/0.4 ML SYR SUBQ SCH (09:00)
[2019-08-16] MEDS ORDERED: MORPHINE TAB ER 15 MG TABER PO PRN (09:55)
--- NOTE | 2019-08-16 10:47 | NUR ---
ULTRASOUND AT BEDSIDE. PT IN STABLE CONDITION.
--- NOTE | 2019-08-16 11:40 | NUR ---
NEW ORDER FOR BLOOD TRANSFUSION REQUIRED DUE TO CANCELLATION OF TRANSFUSION REQUEST WHILE IN EMERGENCY ROOM 08/15/2019. DR. ENG ORDERED 2 UNITS RBC FOR TRANSFUSION.
[2019-08-16] MEDS: VIT-B COMP/VIT-C/FOLIC ACID 1 TAB PO SCH (11:56)
--- NOTE | 2019-08-16 13:25 | NUR ---
CHAVO PIEDRA ORDER OCCULT BLOOD. GAVE RESULTS OF ULTRASOUND LIMITED FOR FLUID VERIFICATION. RESULTS: TINY AMOUNT OF ASCITES
--- NOTE | 2019-08-16 14:55 | NUR ---
BLOOD TRANSFUSION 1 UNIT STARTED AT THIS TIME. PT IN SABLE CONDITION. BED IN LOW POSITION. CALL LIGHT AT BEDSIDE. WILL CONTINUE TO MONITOR.
[2019-08-16 16:00] VITALS: BP 91/50
--- NOTE | 2019-08-16 17:46 | NUR ---
PT EATING DINNER AT THIS TIME. CRACKERS AND TUNA SALAD BROUGHT FROM HOME. PT TOLERATING WELL.
--- NOTE | 2019-08-16 18:35 | NUR ---
BLOOD TRANSFUSION 1 UNIT COMPLETE AT THIS TIME. PT IN STABLE CONDITION.
--- NOTE | 2019-08-16 19:24 | NUR ---
GAVE REPORT TO COMMUNITY DEVELOPMENT WORKER NURSE WILL FOR CONTINUITY OF CARE. PT IN STABLE CONDITION.
--- NOTE | 2019-08-16 19:25 | NUR ---
RECEIVED BEDSIDE REPORT FROM DAY RN. PT IS AAOX4. RESPIRATIONS ARE EQUAL AND UNLABORED ON ROOM AIR. SKIN IS INTACT. PT IS BEDREST D/T WEAKNESS. DX: COMPRESSION FX SPINE. PT H&H LOW ORDER TO RECEIVE 2 UNITS OF PRBC. CURRENTLY FIRST UNIT COMPLETE WILL START SECOND UNI. PT VERBALIZED UNDERSTANDING. VS: 82/42 HR 76 RR 16 95% RA 97.8 PER RN MD IS AWARE OF LOW B/P. BLE EDEMA. GIGI FEET +2 PITTING EDEMA. PT IS JAUNDICE SKIN AND EYES. AND APPEARS PALE. POC DISCUSSED WITH PT AND . CALL LIGHT IS WITHIN REACH. WILL CONTINUE TO MONITOR.
[2019-08-16] MEDS: MIDODRINE 5 MG TAB PO PRN (20:06)
--- NOTE | 2019-08-16 20:40 | NUR ---
SECOND UNIT OF BLOOD STARTED. PRE TRANS VS: 93/52 HR 72 98% 16 97.6 DENIES PAIN.
--- NOTE | 2019-08-16 20:55 | NUR ---
PT WITH NO REACTION. VSS: 97.6 HR 72 RR 16 93/52 DENIES PAIN. WILL INCREASE RATE OF BLOOD TO 100ML/H. BROTHER IS AT BEDSIDE. CALL LIGHT IS WITHIN REACH. WILL CONTINUE TO MONITOR.
--- NOTE | 2019-08-16 21:20 | NUR ---
PATIENT CLEANED AND BED WAS CLEANED. OCCULT BLOOD COLLECTED AND SENT TO LAB. ALL NEEDS MET AT THIS TIME. WILL CONTINUE TO MONITOR.
--- NOTE | 2019-08-16 22:23 | NUR ---
PATIENT IS SLEEPING COMFORTABLY IN BED WITH EYES CLOSED. CHEST RISE AND FALL NOTED. CALL LIGHT IS WITHIN REACH. WILL CONTINUE TO MONITOR.
[2019-08-17] VITALS: BP 94/52
--- NOTE | 2019-08-17 00:05 | NUR ---
BLOOD TRANSFUSION COMPLETE AT 2350 NO ADVERSE REACTION NOTED. POST TRANSFUSION VS: 94/52 HR 71 97% RA RR 16 97.8 DENIES PAIN. PATIENT RECEIVED A TOTAL OF 2UNIT OF PRBC ON 08/16 CBC ORDERED TO BE DRAWN AT 0200 . PT IS SLEEPING COMFORTABLY IN BED. CALL LIGHT IS WITHIN REACH. WILL CONTINUE TO MONITOR.
--- NOTE | 2019-08-17 02:30 | NUR ---
PATIENT IS SLEEPING COMFORTABLY IN BED WITH EYES CLOSED. CHEST RISE AND FALL NOTED. CALL LIGHT IS WITHIN REACH. WILL CONTINUE TO MONITOR.
[2019-08-17 02:31] LABS: HEMATOCRIT 23.9 % (36-52); HEMOGLOBIN 8.6 g/dL (12.0-18.0); MEAN CORPUSCULAR HEMOGLOBIN 37 pg (27-31); MEAN CORPUSCULAR HGB CONC 36 g/dL (33-37); PLATELET COUNT (AUTO) 86 K/uL (140-450); RED BLOOD CELL COUNT(AUTO) 2.34 MIL/uL (4.20-6.10); RED CELL DISTRIBUTION WIDTH 19.8 % (11.6-13.7); WHITE BLOOD COUNT (AUTO) 6.3 K/uL (4.8-10.8)
[2019-08-17 02:54] LABS: EOSINOPHILS % (MANUAL) 2 % (0-4); LYMPHOCYTES % (MANUAL) 16 % (20-46); MONOCYTES % (MANUAL) 8 % (5-12)
--- NOTE | 2019-08-17 04:09 | NUR ---
MADE ROUNDS. PT IS SLEEPING COMFORTABLY IN BED WITH EYES CLOSED. CHEST RISE AND FALL NOTED. SAFETY MEASURES ARE IN PLACE. CALL LIGHT IS WITHIN REACH. WILL CONTINUE TO MONITOR.
--- NOTE | 2019-08-17 04:40 | NUR ---
GAVE HAM SANDWICH AND CRANBERRY JUICE PER REQUEST. PT STATES, HE FEEL A LOT BETTER AND WOKE UP HUNGRY SINCE HE HAS NOT ATE D/T NAUSEA FOR THE PAST TWO DAYS. ALL NEEDS MET AT THIS TIME. CALL LIGHT IS WITHIN REACH.
[2019-08-17 06:57] LABS: HEMATOCRIT 25.1 % (36-52); HEMOGLOBIN 9.1 g/dL (12.0-18.0); MEAN CORPUSCULAR HEMOGLOBIN 37 pg (27-31); MEAN CORPUSCULAR HGB CONC 36 g/dL (33-37); MEAN CORPUSCULAR VOLUME 102.1 fL (80-94); PLATELET COUNT (AUTO) 90 K/uL (140-450); RED BLOOD CELL COUNT(AUTO) 2.46 MIL/uL (4.20-6.10); RED CELL DISTRIBUTION WIDTH 19.8 % (11.6-13.7); WHITE BLOOD COUNT (AUTO) 6.6 K/uL (4.8-10.8)
--- NOTE | 2019-08-17 07:25 | NUR ---
Received report from pm nurse Sigrid. Pt resting in bed, awake, no signs of distress, FLACC 0. at bedside. Left AC IV intact & asymptomatic. Call light within reach.
--- NOTE | 2019-08-17 07:30 | NUR ---
GAVE BEDSIDE REPORT TO DAY RN. PT ENDORSED IN STABLE CONDITION.
[2019-08-17 07:58] LABS: EOSINOPHILS % (MANUAL) 4 % (0-4); LYMPHOCYTES % (MANUAL) 14 % (20-46); MONOCYTES % (MANUAL) 12 % (5-12)
[2019-08-17 08:01] LABS: ANION GAP 10.1 (8-16); CARBON DIOXIDE 29.4 mmol/L (21-32); CREATININE 1.2 mg/dL (0.6-1.3); POTASSIUM 5.5 mmol/L (3.5-5.1); TOTAL BILIRUBIN 11.3 mg/dL (0.0-1.0)
[2019-08-17] MEDS: VIT-B COMP/VIT-C/FOLIC ACID 1 TAB PO SCH (08:42)
--- NOTE | 2019-08-17 09:00 | NUR ---
Spoke to Dr Davis on the phone re: morphine CR d/t dose is 7.5mg but supply is 15mg. Also asked Dr to clarify midodrine and lasix order. Per Dr, he will be coming to unit in a few minutes and input orders.
[2019-08-17] MEDS ORDERED: HYDROcodone/APAP 5/325 MG 1 TAB TAB PO PRN (09:20)
[2019-08-17] MEDS ORDERED: traMADol 50 MG TAB PO PRN (10:05)
[2019-08-17] MEDS: MIDODRINE 5 MG TAB PO PRN (10:26)
[2019-08-17] MEDS ORDERED: PRO5 PO (11:26)
[2019-08-17] MEDS ORDERED: TRAM50TA1 PO (11:26)
--- NOTE | 2019-08-17 12:10 | NUR ---
Written & verbal discharge instructions provided to patient, verbalized understanding of teachings. Left AC IV removed, site with min bleeding, applied pressure and covered with dry gauze and tape. Pt left unit at this time via wheelchair in stable condition, accompanied by staff. Daughter waiting in front lobby. All belongings with patient upon departure.
== END 2019-08-17 12:20 | disposition home or self-care (01) | DRG 347 ==
LOC: MED 17:09 → MMU 20:13
PROVIDERS: ADMIT Hospitalist; ATTEND Hospitalist
PROC: 30233N1 Transfusion of Nonautologous Red Blood Cells into Peripheral Vein, Percutaneous Approach (ICD-10-PCS; principal; 2019-08-16)
DX: M48.56XA Collapsed vertebra, not elsewhere classified, lumbar region, initial encounter for fracture (principal); Z76.82 Awaiting organ transplant status; I85.10 Secondary esophageal varices without bleeding; E44.0 Moderate protein-calorie malnutrition; E87.1 Hypo-osmolality and hyponatremia; K70.31 Alcoholic cirrhosis of liver with ascites; D64.9 Anemia, unspecified; E11.9 Type 2 diabetes mellitus without complications; K72.90 Hepatic failure, unspecified without coma; I10 Essential (primary) hypertension; W18.39XA Other fall on same level, initial encounter; Y93.89 Activity, other specified; Z79.899 Other long term (current) drug therapy; Y92.89 Other specified places as the place of occurrence of the external cause; Y99.8 Other external cause status
CPT/HCPCS: 36415; 72128; 72131; 76700; 76705; 80048; 80053; 82140; 82272; 83540; 85025; 86886; 86900; 86901; 86920; 87081; 96361; 96374; 96375; 97112; 97116; 97161-GP; 99285; J1885; J2270; J7030; P9016; Q0092

== ENCOUNTER 2019-08-30 11:38 | Emergency (ER) | payer OTHER ==
[~2019-08-30] VITALS: Ht 172.7 cm; Wt 78.5 kg
[~2019-08-30 11:38] MED LIST changes: +FURO-572 PO; +LACT10SO1 PO; +PRO5 PO; +SPIR50TA PO; +TRAM50TA1 PO
[2019-08-30 11:51] VITALS: BP 111/49
[2019-08-30] MEDS ORDERED: NACL 0.9% 1,000 ML IV ONE (12:35)
[2019-08-30 13:36] LABS: BASOPHILS % (AUTO) 0.3 % (0.0-2.0); EOSINOPHILS # (AUTO) 0.1 K/uL (0-0.4); HEMATOCRIT 25.3 % (36-52); HEMOGLOBIN 8.8 g/dL (12.0-18.0); LYMPHOCYTES % (AUTO) 17.4 % (20.5-51.1); MEAN CORPUSCULAR HEMOGLOBIN 37 pg (27-31); MEAN CORPUSCULAR HGB CONC 35 g/dL (33-37); MEAN CORPUSCULAR VOLUME 106.5 fL (80-94); MONOCYTES # (AUTO) 0.5 K/uL (0.8-1.0); MONOCYTES % (AUTO) 9.1 % (1.7-9.3); NEUTROPHILS % (AUTO) 71.2 % (42.2-75.2); PLATELET COUNT (AUTO) 113 K/uL (140-450); RED BLOOD CELL COUNT(AUTO) 2.38 MIL/uL (4.20-6.10); WHITE BLOOD COUNT (AUTO) 5.6 K/uL (4.8-10.8)
[2019-08-30 14:27] LABS: ALBUMIN 2.5 g/dL (3.4-5.0); ANION GAP 10.9 (8-16); CARBON DIOXIDE 30.6 mmol/L (21-32); CREATININE 1.1 mg/dL (0.6-1.3); POTASSIUM 4.5 mmol/L (3.5-5.1); PROTHROMBIN TIME 17.7 secs (10.8-13.4); TOTAL BILIRUBIN 13.7 mg/dL (0.0-1.0)
[2019-08-30 16:57] VITALS: BP 113/67
== END 2019-08-30 16:58 | disposition home or self-care (01) ==
LOC: MED 11:38
DX: R17 Unspecified jaundice (principal); E11.9 Type 2 diabetes mellitus without complications; I10 Essential (primary) hypertension; K74.60 Unspecified cirrhosis of liver; K72.90 Hepatic failure, unspecified without coma; Z79.899 Other long term (current) drug therapy
CPT/HCPCS: 36415; 80053; 82140; 85025; 85610; 85730; 87040; 96360; 99283

== ENCOUNTER 2019-09-01 07:54 | Emergency (ER) | payer OTHER ==
[~2019-09-01] VITALS: Ht 172.7 cm; Wt 76.7 kg
--- NOTE | 2019-09-01 08:00 | NUR ---
PT AMBULATED TO BED 11.
[2019-09-01 08:03] VITALS: BP 102/52
--- NOTE | 2019-09-01 08:10 | NUR ---
PT SEEN ON 08/30/19 FOR ABNORMAL LABS. FOLLOW UP TODAY FROM [facility] VISIT. INSTRUCTED TO RETURN TODAY FOR LAB REDRAW. DENIES PAIN, NVD, OR SOB. PLACE ON MONITOR WILL CONTINUE TO MONITOR HX--CIRRHOSIS RX---LACTULOSE, LASIX, Spironolactone
[2019-09-01 08:40] LABS: HEMATOCRIT 25.6 % (36-52); HEMOGLOBIN 8.8 g/dL (12.0-18.0); MEAN CORPUSCULAR HEMOGLOBIN 37 pg (27-31); MEAN CORPUSCULAR HGB CONC 34 g/dL (33-37); MEAN CORPUSCULAR VOLUME 106.7 fL (80-94); PLATELET COUNT (AUTO) 120 K/uL (140-450); RED CELL DISTRIBUTION WIDTH 17.9 % (11.6-13.7); WHITE BLOOD COUNT (AUTO) 6.3 K/uL (4.8-10.8)
[2019-09-01 08:47] LABS: CARBON DIOXIDE 30.1 mmol/L (21-32); CREATININE 1.2 mg/dL (0.6-1.3); POTASSIUM 5.1 mmol/L (3.5-5.1)
[2019-09-01 08:53] LABS: ALBUMIN 2.6 g/dL (3.4-5.0); TOTAL BILIRUBIN 11.8 mg/dL (0.0-1.0)
[2019-09-01 08:58] LABS: PROTHROMBIN TIME 19.6 secs (10.8-13.4)
[2019-09-01 09:04] LABS: BASOPHILS % (MANUAL) 0 % (0-2); EOSINOPHILS % (MANUAL) 1 % (0-4); LYMPHOCYTES % (MANUAL) 18 % (20-46); MONOCYTES % (MANUAL) 10 % (5-12)
[2019-09-01 09:46] VITALS: BP 108/60
--- NOTE | 2019-09-01 09:46 | NUR ---
Patient discharged with v/s stable. Written and verbal after care instructions given and explained. Patient verbalized understanding. Ambulatory with steady gait accompanied by his . All questions addressed prior to discharge. Advised to follow up with PMD.
== END 2019-09-01 09:46 | disposition home or self-care (01) ==
LOC: MED 08:16
DX: R17 Unspecified jaundice (principal); E11.9 Type 2 diabetes mellitus without complications; I10 Essential (primary) hypertension; K74.60 Unspecified cirrhosis of liver; Z79.899 Other long term (current) drug therapy
CPT/HCPCS: 36415; 80053; 85025; 85610; 85730; 99283

== ENCOUNTER 2019-10-09 13:20 | Emergency (ER) | payer MEDICAID, OTHER ==
[~2019-10-09] VITALS: Ht 172.7 cm; Wt 88.0 kg
[2019-10-09 13:26] VITALS: BP 115/62
--- NOTE | 2019-10-09 13:36 | NUR ---
PT AMBULATED TO BATHROOM, STEADY GAIT.
--- NOTE | 2019-10-09 13:39 | NUR ---
Patient ambulated to bed 7. RN evaluating patient at bedside.
[2019-10-09] MEDS ORDERED: IBUPROFEN 400 MG TAB PO ONE (13:50)
--- NOTE | 2019-10-09 14:06 | NUR ---
Pt medicated and left for xray via wheel chair with power plant technician
--- NOTE | 2019-10-09 14:12 | NUR ---
Pt back from Xray
--- NOTE | 2019-10-09 14:41 | NUR ---
PATIENT CAME IN TODAY WITH C/O OF 10/10 LOWER BACK PAIN. HAS HISTORY OF CHRONIC BACK PAIN BUT IN THE LAST 4-5 HOURS HIS PAIN IS 10/10. DENIES ANY INJURY. PATIENT ALSO C/O WEAKNESS TO BILATERAL LEGS AND AMBULATING WITH A CANE. CMS INTACT. PATIENT TOOK A TRAMADOL TODAY WITH NO RELIEF. BED IN LOWEST POSITION, BED RAIL UP X 1. ALLERGIES - NKA MED HX - STAGE 4 CIRRHOSIS
--- NOTE | 2019-10-09 14:55 | NUR ---
Patient discharged with v/s stable. Written and verbal after care instructions given and explained. Patient verbalized understanding. Ambulatory with steady gait. All questions addressed prior to discharge. Advised to follow up with PMD.
== END 2019-10-09 14:55 | disposition home or self-care (01) ==
LOC: MED 13:20
DX: M54.5 Low back pain (principal); I10 Essential (primary) hypertension; Z79.899 Other long term (current) drug therapy
CPT/HCPCS: 72100; 99283

== ENCOUNTER 2021-05-17 12:47 | Emergency (ER) | payer MEDICAID ==
[~2021-05-17] VITALS: Ht 172.7 cm; Wt 79.8 kg
[~2021-05-17 12:47] MED LIST changes: +LACT-103 PO; -LACT10SO1 PO; +[UNRECOGNIZED DRUG - CODE] PO; -[UNRECOGNIZED DRUG - CODE] PO
[2021-05-17 12:50] VITALS: BP 136/88
--- NOTE | 2021-05-17 12:57 | NUR ---
PT RETUNED TO LOBBY AT THIS TIME
--- NOTE | 2021-05-17 13:17 | NUR ---
URINE IN DIRTY UTILITY
--- NOTE | 2021-05-17 13:57 | NUR ---
PT AMBLUATED TO BED 4 AT THIS TIME
--- NOTE | 2021-05-17 14:15 | NUR ---
PT GCS 15 C/O BODY ACHES, N/V X4 DAYS, UNABLE TO TOLERATE PO INTAKE WITHOUT VOMITING. HX OF LIVER TRANSPLANT . IV INSERTED TO RIGHT FA #[id number] BLOOD DRAWN AND SENT TO LAB.
[2021-05-17] MEDS ORDERED: ONDANSETRON 4 MG/2 ML VIAL IVP ONE (14:25)
[2021-05-17] MEDS ORDERED: NACL 0.9% 1,000 ML IV SCH (14:25)
[2021-05-17] MEDS ORDERED: KETOROLAC 30 MG/ML VIAL IVP ONE (14:25)
[2021-05-17 14:33] LABS: APPEARANCE,URINE CLEAR (CLEAR); BILIRUBIN,URINE 2+ (NEGATIVE); BLOOD, URINE NEGATIVE (NEGATIVE); COLOR,URINE YELLOW (YELLOW); LEUKOCYTE ESTERASE ,URINE NEGATIVE (NEGATIVE); NITRITE, URINE NEGATIVE (NEGATIVE); UGLUCOSE NEGATIVE (NEGATIVE)
[2021-05-17 14:43] LABS: BASOPHILS % (AUTO) 0.1 % (0.0-2.0); EOSINOPHILS % (AUTO) 0.5 % (0.0-4.0); HEMATOCRIT 41.8 % (36-52); LYMPHOCYTES # (AUTO) 0.5 K/uL (2.0-11.5); LYMPHOCYTES % (AUTO) 10.1 % (20.5-51.1); MEAN CORPUSCULAR HEMOGLOBIN 29 pg (27-31); MEAN CORPUSCULAR HGB CONC 34 g/dL (33-37); MEAN CORPUSCULAR VOLUME 85.1 fL (80-94); MONOCYTES # (AUTO) 0.5 K/uL (0.8-1.0); MONOCYTES % (AUTO) 8.6 % (1.7-9.3); NEUTROPHILS # (AUTO) 4.2 K/uL (1.8-7.7); NEUTROPHILS % (AUTO) 80.7 % (42.2-75.2); PLATELET COUNT (AUTO) 187 K/uL (140-450); RED BLOOD CELL COUNT(AUTO) 4.91 MIL/uL (4.20-6.10); RED CELL DISTRIBUTION WIDTH 13.7 % (11.6-13.7); WHITE BLOOD COUNT (AUTO) 5.3 K/uL (4.8-10.8)
[2021-05-17 15:00] LABS: PROTHROMBIN TIME 10.1 secs (10.8-13.4)
[2021-05-17 15:03] LABS: ALBUMIN 3.9 g/dL (3.4-5.0); ANION GAP 17.9 (8-16); CARBON DIOXIDE 24.9 mmol/L (21-32); CREATININE 1.4 mg/dL (0.6-1.3); POTASSIUM 3.8 mmol/L (3.5-5.1); TOTAL BILIRUBIN 0.7 mg/dL (0.0-1.0)
[2021-05-17] MEDS ORDERED: MORPHINE SULFATE 2 MG/ML SYR IVP ONE (15:55)
[2021-05-17] MEDS ORDERED: ONDA-188 PO (17:18)
--- NOTE | 2021-05-17 17:32 | NUR ---
Patient discharged with v/s stable. Written and verbal after care instructions given and explained. Patient alert, oriented and verbalized understanding of instructions. Ambulatory with steady gait. All questions addressed prior to discharge. ID band removed. Patient advised to follow up with PMD. Opportunity to ask questions provided and answered.
[2021-05-17 17:33] VITALS: BP 124/70
== END 2021-05-17 17:33 | disposition home or self-care (01) ==
LOC: MED 12:47
DX: R11.10 Vomiting, unspecified (principal); E86.0 Dehydration; R19.7 Diarrhea, unspecified; I10 Essential (primary) hypertension; G43.909 Migraine, unspecified, not intractable, without status migrainosus; Z94.4 Liver transplant status
CPT/HCPCS: 36415; 80053; 81003; 83605; 83690; 85025; 85610; 85730; 87040; 87086; 93005; 96361; 96374; 96375; 99284; J1885; J2270; J2405; J7030

== ENCOUNTER 2022-08-19 21:58 | Emergency (ER) | payer MEDICAID ==
[~2022-08-19] VITALS: Ht 172.7 cm; Wt 77.1 kg
[~2022-08-19 21:58] MED LIST changes: +ONDA-188 PO; +TRAM-748 PO; -TRAM50TA1 PO
[2022-08-19 22:05] VITALS: BP 134/79
--- NOTE | 2022-08-19 22:05 | NUR ---
TO BED AMBULATORY
--- NOTE | 2022-08-19 22:21 | NUR ---
pt accidently got cut by paper cone grader and has laceration on the left thumb. Pt has pain 9/10. pt alert oriented x4. room air. Pt medical history liver transplant, had tetenaus shot aweek ago.
[2022-08-19] MEDS ORDERED: BACITRACIN OINT 500 UNITS/GM PKT TP ONE (22:45)
[2022-08-19] MEDS ORDERED: HYDROcodone/APAP 5/325 MG 1 TAB TAB PO ONE (22:50)
[2022-08-19 23:16] VITALS: BP 134/79
--- NOTE | 2022-08-19 23:18 | NUR ---
Patient discharged with v/s stable. Written and verbal after care instructions given and explained. Patient verbalized understanding. Ambulatory with steady gait. All questions addressed prior to discharge. Advised to follow up with PMD. Pt left with his belonigings.
== END 2022-08-19 23:15 | disposition home or self-care (01) ==
LOC: MED 21:58
DX: S61.102A Unspecified open wound of left thumb with damage to nail, initial encounter (principal); W26.8XXA Contact with other sharp object(s), not elsewhere classified, initial encounter; Y93.89 Activity, other specified; Y92.89 Other specified places as the place of occurrence of the external cause; Y99.8 Other external cause status
CPT/HCPCS: 99282